=== PATIENT | female | born 1945 | race Caucasian/White ===

== ENCOUNTER 2017-11-12 13:02 | Emergency (ER) | payer MEDICARE, OTHER ==
[~2017-11-12] VITALS: Ht 165.1 cm; Wt 140.0 kg
[~2017-11-12 13:02] MED LIST: BL ADULT ASA81 MG PO; CALCIUM600 M1 OR; CELEBREX100 MG PO; CHILD'S ASA81 MG OR; COUMADIN5 MG PO; CRESTOR10 MG PO; CYMBALTA60 MG PO; DOXYCYCL HYC100 MG PO; ESCITALOPRAM OX10 MG PO; FISH OI1 OR; FLUOXETINE20 MG PO; FUROSEMIDE40 MG PO; GLUCOSAMINE1 TA1 OR; LORTAB 5-325 MG1 TAB PO; MAG-OX 400400 MG PO; METO50TA52 PO; MULIT-VITAMI OR; MULTIVITAM10 OR; MULTIVITAMI1 PO; POT CHLORIDE20 ME3 PO; VITAMIN C1000 MG OR; VITAMIN E400 UNIT OR
[2017-11-12 14:25] LABS: HEMATOCRIT 43.2 % (37.0-47.0); HEMOGLOBIN 14.4 g/dl (12.0-16.0); IMMATURE GRANULOCYTES 0.3 % (0.0-5.0); MEAN CELL VOLUME 96.6 fL CALC (80.0-100.0); MEAN CORPUSCULAR HGB 32.2 pG CALC (26.0-32.0); MEAN CORPUSCULAR HGB CONC 33.3 g/L CALC (32.0-36.0); NEUT# 8.61 thou/uL (2.00-7.15); RED BLOOD COUNT 4.47 mill/uL (4.20-5.60); RED CELL DISTRI WIDTH 13.3 % (11.5-15.5)
[2017-11-12 14:28] LABS: INTERNATIONAL NORMALIZED RATIO 2.3 RATIO (0.7-1.3); PROTHROMBIN TIME 25.6 SECONDS (9.0-12.5)
[2017-11-12 14:31] LABS: ALBUMIN 3.9 g/dL (3.2-5.0); ALKALINE PHOSPHATASE 71 u/l (38-126); BILIRUBIN, TOTAL 0.7 mg/dL (0.0-1.4); BUN 12 mg/dL (8-23); BUN/CREATININE RATIO 18 (12-20 (CALC)); CARBON DIOXIDE 24 mmol/l (22-30); CHLORIDE 102 mmol/l (95-108); CREATININE 0.7 mg/dL (0.5-1.0); GFR > 60 ML/MIN (>=60 (CALC)); GFR FOR AFR.AMER. > 60 ML/MIN (>=60 (CALC)); LIPASE 107 u/l (23-300); SGOT/AST 23 u/l (9-36); SGPT/ALT 36 u/l (11-66); SODIUM 139 mmol/l (137-146); TOTAL PROTEIN 6.9 g/dL (6.3-8.2)
[2017-11-12 14:32] LABS: ANION GAP 17 (6-22 (CALC)); POTASSIUM 3.7 mmol/l (3.5-5.1)
[2017-11-12 15:04] LABS: URINE BILIRUBIN - DIPSTICK NEGATIVE (NEGATIVE); URINE BLOOD DIPSTICK SMALL (NEGATIVE); URINE COLOR YELLOW; URINE GLUCOSE - DIPSTICK NEGATIVE (NEGATIVE); URINE KETONE TRACE mg/dL (NEGATIVE); URINE NITRITE - DIPSTICK NEGATIVE (Negative); URINE PROTEIN - DIPSTICK NEGATIVE (NEG-TRACE); URINE SPECIFIC GRAVITY <=1.005; URINE UROBILINOGEN - DIPSTICK 0.2 E.U./dL (0.2)
[2017-11-12 15:05] LABS: URINE CLARITY CLEAR; URINE LEUK ESTERASE MODERATE (NEGATIVE)
[2017-11-12] MEDS ORDERED: CELEXA20 MG PO (15:09)
[2017-11-12] MEDS ORDERED: FISH OIL1000 MG PO (15:10)
[2017-11-12] MEDS ORDERED: VITAMIN D PO ×2 (15:10→15:11)
[2017-11-12 15:13] LABS: URINE RBC 0-2 RBC/hpf (0-5); URINE SQUAMOUS EPITHELIAL CELL FEW EPI/hpf (0-FEW)
[2017-11-12] MEDS ORDERED: PERCOCET 10/31 COMBO PO (17:46)
[2017-11-12] MEDS ORDERED: ZOFRAN ODT4 MG PO (17:46)
[2017-11-12] MEDS ORDERED: MACROBID100 MG PO (17:46)
[2017-11-12 19:58] VITALS: BP 112/56
== END 2017-11-12 20:10 | disposition home or self-care (01) ==
LOC: ED 13:02
PROVIDERS: Emergency Medicine
DX: N20.0 Calculus of kidney (principal); N39.0 Urinary tract infection, site not specified; I10 Essential (primary) hypertension; Z86.711 Personal history of pulmonary embolism; R51 Headache
CPT/HCPCS: Q9967

== ENCOUNTER 2017-11-16 12:24 | Observation (INO) | payer MEDICARE, OTHER ==
[~2017-11-16] VITALS: Ht 165.1 cm; Wt 152.2 kg
[~2017-11-16 12:24] MED LIST changes: +CELEXA20 MG PO; +FISH OIL1000 MG PO; +MACROBID100 MG PO; +PERCOCET 10/31 COMBO PO; +VITAMIN D PO; +ZOFRAN ODT4 MG PO
--- NOTE | 2017-11-16 12:40 | NUR ---
PT AMBULATED TO ROOM WITH A STEADY GAIT.
--- NOTE | 2017-11-16 13:27 | NUR ---
PT SENT TO ER BY DR WORLEY TO BE ADMITTED FOR KIDNEY STONE REMOVAL. PT IS AOX4. PT STATES PAIN IN LOWER LEFT ABDOMEN AND LEFT FLANK. PT DENIES ANY C/P, SOB, OR WEAKNESS. PT HAS BEEN NAUSEATED.
--- NOTE | 2017-11-16 13:28 | NUR ---
ANAESTHIA AT BEDSIDE WITH PT
[2017-11-16 13:43] LABS: HEMATOCRIT 43.4 % (37.0-47.0); HEMOGLOBIN 14.2 g/dl (12.0-16.0); IMMATURE GRANULOCYTES 0.2 % (0.0-5.0); MEAN CELL VOLUME 97.1 fL CALC (80.0-100.0); MEAN CORPUSCULAR HGB 31.8 pG CALC (26.0-32.0); MEAN CORPUSCULAR HGB CONC 32.7 g/L CALC (32.0-36.0); NEUT# 5.49 thou/uL (2.00-7.15); RED BLOOD COUNT 4.47 mill/uL (4.20-5.60)
[2017-11-16] MEDS ORDERED: CIPROFLOXACN500 MG PO (13:53)
[2017-11-16 13:56] LABS: ALBUMIN 4.1 g/dL (3.2-5.0); ALKALINE PHOSPHATASE 70 u/l (38-126); ANION GAP 15 (6-22 (CALC)); BILIRUBIN, TOTAL 0.6 mg/dL (0.0-1.4); BUN 16 mg/dL (8-23); BUN/CREATININE RATIO 22 (12-20 (CALC)); CARBON DIOXIDE 27 mmol/l (22-30); CHLORIDE 103 mmol/l (95-108); CREATININE 0.7 mg/dL (0.5-1.0); GFR > 60 ML/MIN (>=60 (CALC)); GFR FOR AFR.AMER. > 60 ML/MIN (>=60 (CALC)); LIPASE 165 u/l (23-300); POTASSIUM 4.1 mmol/l (3.5-5.1); SGOT/AST 28 u/l (9-36); SGPT/ALT 38 u/l (11-66); SODIUM 141 mmol/l (137-146); TOTAL PROTEIN 7.2 g/dL (6.3-8.2)
--- NOTE | 2017-11-16 14:28 | NUR ---
PT RESTING ON STRETCHER, AWAITING ADMISSION
--- NOTE | 2017-11-16 14:59 | NUR ---
REPORT ATTEMPTED TO FLOOR, WILL RETURN CALL
--- NOTE | 2017-11-16 15:08 | NUR ---
REPORT GIVEN TO AREKUSUMI- ACCEPTED PT
--- NOTE | 2017-11-16 15:21 | NUR ---
Admission Note Report Given to: ARAKUSUMI Transported by: Wheelchair X Stretcher Transported with: X Nurse Transporter X Patent IV O2 X Nuclear Medicine Tech TRANSPORTED TO [facility]
[2017-11-16 15:29] VITALS: BP 132/73
--- NOTE | 2017-11-16 15:37 | NUR ---
ASSESSMENT DONE. PT IS A&O X3. LUNG SOUND CLEAR/DIMINISHED. PT STATED PAIN LEFT FLANK 2/ DENIES NEEDS OF PAIN MEDICATION. # 20 LFA THAT APPEARS HEALTHY. POC DISCUSSED. PT DENIES NEEDS AT THIS TIME. CALL LIGHT IN REACH.
[2017-11-16 17:00] LABS: ACT PARTIAL THROMBO TIME 42.9 SECONDS (20.0-32.5); INTERNATIONAL NORMALIZED RATIO 2.4 RATIO (0.7-1.3); PROTHROMBIN TIME 27.3 SECONDS (9.0-12.5)
[2017-11-16 18:01] LABS: URINE BILIRUBIN - DIPSTICK NEGATIVE (NEGATIVE); URINE BLOOD DIPSTICK TRACE-LYSED (NEGATIVE); URINE CLARITY CLEAR; URINE COLOR YELLOW; URINE GLUCOSE - DIPSTICK NEGATIVE (NEGATIVE); URINE KETONE NEGATIVE (NEGATIVE); URINE LEUK ESTERASE TRACE (NEGATIVE); URINE NITRITE - DIPSTICK NEGATIVE (Negative); URINE PROTEIN - DIPSTICK NEGATIVE (NEG-TRACE); URINE SPECIFIC GRAVITY <=1.005; URINE UROBILINOGEN - DIPSTICK 0.2 E.U./dL (0.2)
--- NOTE | 2017-11-16 19:15 | NUR ---
CALLED DR. CAMACHO RE: PT EKG AND LABS PT 27.3, INR 2.4, AND PTT 42.9. THAT PATIENT TOOK HER WARFARIN TODAY. DR. CAMACHO STATED THAT PATIENT IS MEDICALLY CLEAR FOR SURGERY.
--- NOTE | 2017-11-16 19:41 | NUR ---
PATIENT RESTING IN BED AT THIS TIME-AWAKE ALERT AND ORIENTEDX3. PATIENT WITH NO COMPLAINTS AT THIS TIME. STATES THAT SHE DOES HAVE LEFT FLANK PAIN THAT COMES AND GOES BUT NOT BAD AT THIS TIME. 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 PATIENT WITH IV SITE TO LEFT FOREARM WITH IVF 1/2NS PATENT AND INFUSING AT 100CC/HR. PATIENT INSTRUCTED THAT SHE WILL NPO AFTER MIDNIGHT TONIGHT FOR OR PROCEDURE IN AM. VERBALIZES UNDERSTANDING OF THE STATED. SAFETY PRECAUTIONS REINFORCED. CALL LIGHT IN REACH. WILL CONT TO MONITOR.
[2017-11-16 20:25] VITALS: BP 115/64
--- NOTE | 2017-11-16 22:00 | NUR ---
PATIENT RESTING IN BED. STATES NO RELIEF FROM TYLENOL THAT WAS GIVEN FOR H/A EARLIER. OFFERED MORPHINE BUT PATIENT DECLINED. IV SITE TO LEFT FOREARM REMAINS HEALTHY WITH IVF 1/2NS INFUSING AT 100CC/HR. MERRUM 1GM HUNG ORDERED. HS SNACK PROVIDED TO PATIENT. SAFETY PRECAUTIONS REINFORCED. CALL LIGHT IN REACH. WILL CONT TO MONITOR.
--- NOTE | 2017-11-16 23:30 | NUR ---
RESTING IN BED AT THIS TIME-APPEARS SLEEPING. CALL LIGHT IN REACH. WILL CONT TO MONITOR.
[2017-11-17] VITALS (9 sets, daily range): BP systolic 119–134; BP diastolic 49–90
--- NOTE | 2017-11-17 03:55 | NUR ---
PATIENT APPEARS SLEEPING AT THIS TIME. NPO FOR PROCEDURE THIS MORNING. IVF 1/2NS PATENT AND INFUSING AT 100CC/HR. CALL LIGHT IN REACH. WILL CONT TO MONITOR.
[2017-11-17 05:19] LABS: INTERNATIONAL NORMALIZED RATIO 2.6 RATIO (0.7-1.3); PROTHROMBIN TIME 30.1 SECONDS (9.0-12.5)
--- NOTE | 2017-11-17 05:30 | NUR ---
PATIENT RESTING IN BED-AWAKE ALERT ANDORIENTENTEDX3. REMAINS NPO FOR PROCEDURE THIS MORNING. MERRUM HUNG ORDERED. EARRINGS REMOVED AND PLACE IN SECURE CUP. CALL LIGHT IN REACH. [facility]
--- NOTE | 2017-11-17 06:25 | NUR ---
PATIENT UP TO VOID. UNDERGARMENTS REMOVED. REMAINS NPO. PATIENT TO OR VIA STRETCHER WITH OR STAFF AND CHART.
--- NOTE | 2017-11-17 07:15 | NUR ---
REPORT RECEIVED BY JESUS. PT IS IN OR AT THIS TIME.
[2017-11-17] MEDS ORDERED: AZO TABS95 MG PO (09:02)
[2017-11-17] MEDS ORDERED: CIPRO XR500 MG PO (09:02)
[2017-11-17] MEDS ORDERED: OXYBUTYNIN5 M1 PO (09:02)
[2017-11-17] MEDS ORDERED: GABAPENTIN300 M2 PO (09:02)
--- NOTE | 2017-11-17 09:13 | NUR ---
PT CAME FROM OR VIA STRETCHER BY YULIYA ORONA. PT TRANFER TO BED WELL. ASSESSMENT DONE. LUNG SOUND CLEAR/DIMINISHED. #20LFA THAT APPEARS HEALTHY. LR 100ML/HR INFUSING WELL. PT DENIES PAIN AT THIS TIME. PT STATED THAT HER THROAT IS SORE ICE CHIPS PROVIDED. ASSISTED PT TO THE BSC. PT TOLERATED WELL. SAFETY PRECAUTIONS REINFORCED AND CALL LIGHT IN REACH. PT MOM IN ROOM.
--- NOTE | 2017-11-17 15:39 | NUR ---
MEDICATED PT WITH PERCOCET FOR PAIN SEE EMAR. PT DENIES ANY OTHER NEEDS AT THIS TIME. O2 2L/MIN VIA NC. CALL LIGHT IN REACH.
--- NOTE | 2017-11-17 19:30 | NUR ---
PATIENT RESTING IN BED AT THIS TIME-FINISHING DINNER-TOLERATED WELL. ALERT AND ORIENTEDX3. PATIENT WITH IV SITE TO RIGHT FOREARM WITH IVF 1/2NS PATENT AND INFUSING AT 100CC/HR. SITE APPEARS HEALTHY AT THIS TIME. NO COMPLAINTS AT THIS TIME. SAFETY PRECAUTIONS REINFORCED. CALL LIGHT IN REACH. WILL CONT TO MONITOR.
--- NOTE | 2017-11-17 22:58 | NUR ---
PATIENT RESTING IN BED-C/O ABD/PELVIC PAIN. MEDICATED WITH PERCOCET 10/325MG PO ORDERED. MERRUM HUNG ORDERED. PROVIDED WITH HS SNACK PER PATIENT REQUEST. CALL LIGHT IN REACH. WILL CONT TO MONITOR.
--- NOTE | 2017-11-18 00:38 | NUR ---
PATIENT RESTING IN BED-C/O LEFT FLANK PAIN, NAUSEA AND BURNING UPON URINATION-JUST UP TO BR TO VOID 200CC OF PINK TINGED URINE. PATIENT MEDICATED FOR NAUSEA WITH ZOFRAN 4MG IVP. MEDICATED FOR BURNING UPON URINATION WITH PYRIDIUM 200MG PO. MEDICATED FOR 9/10 PAIN SCALE WITH MORPHINE 2MG IVP. COLD COMPRESS PROVIDED FOR HEAD. IVF PATENT AND INFUSING AT 100CC/HR. SAFETY PRECAUTIONS REINFORCED.CALL LIGHT IN REACH. WILL CONT TO MONITOR.
[2017-11-18 00:42] VITALS: BP 125/64
--- NOTE | 2017-11-18 01:33 | NUR ---
PATIENT STILL C/O LEFT FLANK PAIN. MEDICATED WITH PERCOCET 10/325MG PO FOR 7/10 ON PAIN SCALE. PATIENT ASSISTED UP TO THE BR. WILL CONT TO MONITOR.
--- NOTE | 2017-11-18 03:00 | NUR ---
PATIENT RESTING IN BED-STATES THAT HER PAIN IS BETTER-2/10 ON PAIN SCALE. CALL LIGHT IN REACH. WILL CONT TO MONITOR.
[2017-11-18 05:21] VITALS: BP 113/58
--- NOTE | 2017-11-18 05:36 | NUR ---
PATIENT RESTING IN BED C/O LEFT SIDE AND FLANK PAIN, SPASMS. MEDICATED WITH PERCOCET 10/325MG PO AND BENTYL 10MG IM FOR SPASMS. IVF REMAINS AT 100CC/HR VIA RIGHT FOREARM SITE. MERRUM HUNG ORDERED. PATIENT LST VOID 225CC OF PINKISH ORANGE URINE. CALL LIGHT IN REACH. WILL CONT TO MONITOR.
[2017-11-18 08:00] VITALS: BP 135/44
--- NOTE | 2017-11-18 09:00 | NUR ---
PT SEEN AWAKE, ALERT, ORIENTED. PT IS ABLE TO GET TO HER FEET WITH MINIMAL ASSIST, WALKS TO BR. PT MEDICATED FOR HEADACHE PAIN. NO COMPLAINTS R/T URINARY PAIN.
--- NOTE | 2017-11-18 11:48 | NUR ---
Vancomycin consult Age: 72 years Weight: 152.2 kg Height: 165.1 cm Gender: Female SCR: 0.7 mg/dl Dosing weight: 95.08 kg IBW: 57.00 kg CRCL (ml/min): 67.3 Von (hr-1): 0.060 Half-life (hrs): 11.55 Vd (liters): 106.54 (factor: 0.7 L/kg) Vancomycin 1500 mg Q12H to produce a predicted peak of 26 mcg/ml and a predicted trough of 14 mcg/ml based on (Population-based pharmacokinetic analysis).
--- NOTE | 2017-11-18 13:00 | NUR ---
PT HOPED TO GO HOME TODAY, AWARE NOW THAT IT WILL NOT HAPPEN TODAY. PT RECEIVED VANCOMYCIN IV. HEADACHE IMPROVED.
[2017-11-18 16:28] VITALS: BP 114/69
--- NOTE | 2017-11-18 17:29 | NUR ---
PT REMAINS BEFORE, RESTING IN THE BED IN NO ACUTE DISTRESS. NO COMPLAINTS OF FLANK PAIN. PT ASKS FOR HELP APPROPRIATELY.
[2017-11-18 19:23] VITALS: BP 115/61
--- NOTE | 2017-11-18 19:36 | NUR ---
REPORT GIVEN BY ALDEN DWYER. PATIENT RESTING IN BED. HAS C/O OF A HEADACHE, AN ICEPACK WAS GIVEN. FALL PRECAUTIONS IN PLACE, PLAN OF CARE DISCUSSED, AND PATIENT INFORMED TO CALL WITH ANY QUESTIONS OR CONCERNS. RESP EVEN AND UNLABORED. NO S/S OF DISTRESS NOTED.
--- NOTE | 2017-11-18 23:48 | NUR ---
PATIENT RESTING WITH EYES CLOSED. RESP EVEN AND UNLABORED. NO S/S OF DISTRESS NOTED.
[2017-11-19] VITALS: BP 109/58
[2017-11-19 04:00] VITALS: BP 136/56
--- NOTE | 2017-11-19 04:06 | NUR ---
PATIENT AWAKE AND USING THE RESTROOM. RESP EVEN AND UNLABORED. NO S/S OF DISTRESS NOTED.
[2017-11-19 05:08] LABS: HEMOGLOBIN 13.3 g/dl (12.0-16.0); MEAN CELL VOLUME 100.2 fL CALC (80.0-100.0); MEAN CORPUSCULAR HGB 31.7 pG CALC (26.0-32.0); MEAN CORPUSCULAR HGB CONC 31.7 g/L CALC (32.0-36.0); RED BLOOD COUNT 4.19 mill/uL (4.20-5.60); RED CELL DISTRI WIDTH 13.6 % (11.5-15.5)
[2017-11-19 05:40] LABS: ANION GAP 12 (6-22 (CALC)); BUN 10 mg/dL (8-23); BUN/CREATININE RATIO 15 (12-20 (CALC)); CARBON DIOXIDE 27 mmol/l (22-30); CHLORIDE 107 mmol/l (95-108); CREATININE 0.7 mg/dL (0.5-1.0); GFR > 60 ML/MIN (>=60 (CALC)); GFR FOR AFR.AMER. > 60 ML/MIN (>=60 (CALC)); SODIUM 142 mmol/l (137-146)
--- NOTE | 2017-11-19 07:23 | NUR ---
REPORT RECEIVED FROM YULIYA MARTINEZ. PT SUPINE IN BED. REPORTS HEADACHE. PAIN MEDICAITONS AND SCHEDULES REVIEWED. PERCOCET PO ADMINISTERED. REPORTING OF CONCERNS ENCOURAGED. CALL LIGHT REVIEWED AND IN REACH. PT STATES UNDERSTANDING.
[2017-11-19 09:00] VITALS: BP 112/50
[2017-11-19 11:06] LABS: URINE BILIRUBIN - DIPSTICK NEGATIVE (NEGATIVE); URINE BLOOD DIPSTICK LARGE (NEGATIVE); URINE GLUCOSE - DIPSTICK 100 mg/dL (NEGATIVE); URINE KETONE NEGATIVE (NEGATIVE); URINE LEUK ESTERASE TRACE (Negative); URINE NITRITE - DIPSTICK POSITIVE (Negative); URINE PH 5.5 (4.5-8.0); URINE PROTEIN - DIPSTICK 30 mg/dL (NEG-TRACE); URINE SPECIFIC GRAVITY 1.025
--- NOTE | 2017-11-19 11:07 | NUR ---
PT LEFT FLOOR VIA WHEELCHAIR, IN ROUTE TO US, ACCOMPANIED BY DARRELL BEVERLY.
[2017-11-19 11:08] LABS: URINE COLOR ORANGE
[2017-11-19 11:09] LABS: URINE BACTERIA MODERATE hpf; URINE CLARITY CLOUDY; URINE EPITHELIAL CELLS FEW EPI/hpf (0-FEW); URINE RBC 50-100 RBC/hpf (0-5)
--- NOTE | 2017-11-19 11:45 | NUR ---
PT RETURNED TO FLOOR. IV RESUMED. PT REPORTS HEADACHE. IMITREX PO ADMINISTERED.
[2017-11-19 15:55] VITALS: BP 133/69
--- NOTE | 2017-11-19 16:10 | NUR ---
PT SUPINE IN BED. SLEEPING. CALL LIGHT WITHIN REACH.
[2017-11-19 19:28] VITALS: BP 116/64
--- NOTE | 2017-11-19 19:30 | NUR ---
BEDSIDE REPORT RECEIVED FROM YULIYA PAREKH. PT RESTING IN BED SEMI FOWLERS WITH ICE PACK TO NECK AND COOL CLOTH OVER EYES; ALERT AND ORIENTED. STATES THAT HER HEADACHE IS A 6/10 AND REQUESTS PAIN MEDICATIONS. RESPIRATIONS EVEN AND UNLABORED ON ROOM AIR. PLAN OF CARE REVIEWED. PT ENCOURAGED TO VERBALIZE CONCERNS. STATES UNDERSTANDING. SAFETY MEASURES IN PLACE. CALL LIGHT WITHIN REACH.
--- NOTE | 2017-11-20 00:24 | NUR ---
PEROCET GIVEN FOR C/O HEADACHE. PT UP AGAIN TO VOID; SOME INCONTINENCE AND URINE IS YELLOW AND BLOOD TINGED. STAND BY ASSIST. IV FLUIDS INFUSING WITHOUT DIFFICULTY; IV SITE APPEARS HEALTHY AND DRESSING CHANGES. SAFETY MEASURES IN PLACE. CALL LIGHT WITHIN REACH.
[2017-11-20 00:44] VITALS: BP 108/56
--- NOTE | 2017-11-20 00:50 | NUR ---
OXYGEN SATURATION DECREASED TO 80% ON ROOM AIR WHILE ASLEEP; APPLIED OXYGEN VIA NC AT 2L AND HOB ELEVATED; SATURATION CURRENLTY 93% ON OXYGEN.
--- NOTE | 2017-11-20 04:21 | NUR ---
PT CONTINUES TO HAVE HEADACHE; PERCOCET AND MORPHINE ARE EFFECTIVE, BUT DO NOT COMPLETELY ALLEVIATE PAIN; ALSO HAS MILD LLQ PAIN. RESPIRATIONS REMAIN EVEN AND UNLABORED ON OXYGEN WITH BETTER OXYGEN SATURATIONS. CONTINUES TO HAVE BLADDER INCONTINENCE WITH BLOOD TINGED URINE. CALL LIGHT WITHIN REACH.
[2017-11-20 04:30] VITALS: BP 102/60
[2017-11-20 04:50] LABS: HEMATOCRIT 39.9 % (37.0-47.0); HEMOGLOBIN 12.8 g/dl (12.0-16.0); MEAN CELL VOLUME 100.5 fL CALC (80.0-100.0); MEAN CORPUSCULAR HGB 32.2 pG CALC (26.0-32.0); MEAN CORPUSCULAR HGB CONC 32.1 g/L CALC (32.0-36.0); RED BLOOD COUNT 3.97 mill/uL (4.20-5.60); RED CELL DISTRI WIDTH 13.8 % (11.5-15.5)
[2017-11-20 05:03] LABS: INTERNATIONAL NORMALIZED RATIO 2.4 RATIO (0.7-1.3); PROTHROMBIN TIME 27.5 SECONDS (9.0-12.5)
--- NOTE | 2017-11-20 05:09 | NUR ---
PERCOCET GIVEN FOR HEADACHE. PT TOOK MEDICATION IN APPLESAUCE WITH TREMOR NOTED TO HANDS. PT STATES THAT SHE SHAKES WHEN SHE IS HAVING PAIN.
--- NOTE | 2017-11-20 07:00 | NUR ---
SHIFT CHANGE REPORT FROM KIKA CHAVEZ AWAKE RESTING IN BED, C/O OF HEADACHE @ 2/10 AT THIS TIME STATING MEDICATION GIVEN EARLIER RELIEVED PAIN, IVF INFUSING, O2 @ 2L VIA NC IN PLACE, ASSISTED TO BR AND UP TO CHAIR FOR MEAL, CALL YEE IN REACH.
[2017-11-20 07:17] LABS: ANION GAP 12 (6-22 (CALC)); BUN 13 mg/dL (8-23); BUN/CREATININE RATIO 19 (12-20 (CALC)); CARBON DIOXIDE 26 mmol/l (22-30); CHLORIDE 107 mmol/l (95-108); CREATININE 0.7 mg/dL (0.5-1.0); GFR > 60 ML/MIN (>=60 (CALC)); GFR FOR AFR.AMER. > 60 ML/MIN (>=60 (CALC)); POTASSIUM 4.6 mmol/l (3.5-5.1); SODIUM 139 mmol/l (137-146)
[2017-11-20 07:49] VITALS: BP 103/47
--- NOTE | 2017-11-20 08:43 | NUR ---
Vancomycin single level analysis: Current dose being given: 1500 mg Current dosing interval: 12 hrs Current infusion time (hrs): 2 Single level Trough Data: Trough level obtained: 20 mcg/ml Timing of trough - Number of hours before next dose: 0.08 Hrs Desired peak: 30 mcg/ml Desired trough: 15 mcg/ml WE WILL HOLD 11/20/17 AM DOSE AND RESTART VANCOMYCIN 1250MG Q12H @2100 Next trough will be 11/22/17@ 0830
--- NOTE | 2017-11-20 11:47 | NUR ---
SLEEPING IN BED AT THIS TIME, NO SIGN DISCOMFORT, CALL YEE IN REACH.
--- NOTE | 2017-11-20 14:02 | NUR ---
PT WAS PERFORMING MATTHEW-CARE @ 1130 AM TODAY, STENT FELL OUT OF PLACE ON FLOOR. DR COOPER'S PLANTING SUPERVISOR (KAR) NOTIFIED AND ADVISED SHE WILL CONTACT HIM HE IS IN [facility] AT THIS TIME AND WILL GET BACK TO ME MICHAEL, PHONE NUMBER SUPPLIED.
--- NOTE | 2017-11-20 14:07 | NUR ---
KAR FROM DR COOPER'S OFFICE RETURNED CALLED STATING SHE CONTACTED DR COOPER WHO INFORMED HER EVERYTHING SHOULD BE FINE HE ALREADY REMOVED STONE, WILL CONTINUE TO MONITOR.
[2017-11-20 16:00] VITALS: BP 118/61
--- NOTE | 2017-11-20 16:03 | NUR ---
PAT FROM PHYSICAL THERAPY CAME AND EVAL & TREATED PT, SHE IS NOW RESTING IN BED IN SUPINE POSITION, USING INCENTIVE SPIROMETER INDEPENDENTLY INSTRUCTED, PAIN CONTROLLED, WILL CONTINUE TO MONITOR.
--- NOTE | 2017-11-20 19:15 | NUR ---
PT RESTING IN BED WATCHING TV. PT ALERT AND ORIENTED. RESP EVEN AND UNLABORED. LUNGS CLEAR/DIMINISHED BILAT. ABD SOFT, HYPOACTIVE BOWEL SOUNDS. PEDAL PULSES PALPATED BILAT. PT DENIES ANY PAIN AT THIS TIME. IV ATTEMPT UNSUCCESSFUL BY THIS PEANUT SORTER. PT REPOSITIONED FOR COMFORT. PT ENCOURAGED TO CALL FOR ASSISTANCE TO AMBULATE. FREQUENT ROUNDS MADE. CALL LIGHT WITHIN REACH.
[2017-11-20 20:00] VITALS: BP 152/78
--- NOTE | 2017-11-20 20:55 | NUR ---
IV ATTEMPT SUCCESSFUL BY YULIYA MAC. IV SITE #24 RW, SITE PATENT; FLUSHED WITHOUT DIFFICULTY.
--- NOTE | 2017-11-21 00:25 | NUR ---
PT CALLED FOR ASSISTANCE TO USE THE BATHROOM. PT ASSISTED TO BATHROOM, VOIDED 500CC OF DARK SANDY URINE. PT ASSISTED BACK TO BED. PT REPOSITIONED FOR COMFORT. PT DENIES ANY PAIN. IV RW PATENT; NO REDNESS OR EDEMA NOTED. CALL LIGHT WITHIN REACH.
--- NOTE | 2017-11-21 04:30 | NUR ---
PT WOKE FOR MORNING VITALS. PT DENIES PAIN. ASSESSMENT UNCHANGED. RESP EVEN AND UNLABORED. NO DISTRESS NOTED. PT REPOSITIONED FOR COMFORT. CALL LIGHT WITHIN REACH.
[2017-11-21 05:45] VITALS: BP 102/68
[2017-11-21 06:38] LABS: INTERNATIONAL NORMALIZED RATIO 1.8 RATIO (0.7-1.3); PROTHROMBIN TIME 19.9 SECONDS (9.0-12.5)
--- NOTE | 2017-11-21 07:15 | NUR ---
REPORT RECEIVED BY JESSICA. PT IS RESTING IN BED WITH NO S/S OF DISTRESS NOTED. PT DENIES NEEDS AT THIS TIME. CALL LIGHT IN REACH.
[2017-11-21 07:54] VITALS: BP 105/62
--- NOTE | 2017-11-21 08:00 | NUR ---
ASSESSMENT DONE. LUNG SOUND CLEAR/DIMINISHED. 02 AT 2L/MIN VIA NC. PT DENIES PAIN. PT STATED THAT SHE IS JUST TIRED. 1/2NS 100ML/HR INFUSING WELL. ASSISTED PT TO THE BATHROOM PT VOID YELLOW URINE AND THEN TO THE RECLINER. SETUP PT FOR BREAKFAST. PT DENIES ANY OTHER NEEDS AT THIS TIME. SAFETY PRECAUTIONS REINFORCED AND CALL LIGHT IN REACH.
--- NOTE | 2017-11-21 09:22 | NUR ---
PT WENT DOWN VIA WHEELCHAIR TO X-RAY FOR HER PICC PLACEMENT .
[2017-11-21] MEDS ORDERED: DITROPAN5 MG/TA1 PO (10:57)
[2017-11-21] MEDS ORDERED: LYPHOCIN1 GM IV (10:57)
[2017-11-21] MEDS ORDERED: PERCOCET 10/31 COMBO PO (10:57)
[2017-11-21] MEDS ORDERED: CIPROFLOXACN500 MG PO (10:57)
[2017-11-21] MEDS ORDERED: DICYCLOMINE20 MG PO (10:57)
--- NOTE | 2017-11-21 12:00 | NUR ---
PT IS SITTING IN RECLINER. EATING HER LUNCH WITH NO S/S OF DISTRESS NOTED. PT DENIES NEEDS AT THIS TIME. CALL LIGHT IN REACH.
--- NOTE | 2017-11-21 12:10 | NUR ---
Patient has requested a walker for home use stating she feels woozy at times from the medication, and feels weak from the infection. She was evaluated with a rolling walker and is more stable with the walker. She was instructed in safe use of the walker especially in reqards to transfers. With out the walker she requires hands on grarding of one, and with the walker she requires only SBA. She is safe with the walker and the therapist is recommending a bariatric, rolling walker with a seat on it so she can sit if she becomes fatigued or becomes dizzy. The therapist notified the patient's nurse and convention planner.
[2017-11-21 12:43] VITALS: BP 108/69
--- NOTE | 2017-11-21 15:00 | NUR ---
Discharge instructions given. Patient verbalizes understanding of same. PT STATED THAT SHE IS WAITING FOR HER DAUGHTER IN LAW TO COME. PT DENIES ANY OTHER NEEDS AT THIS TIME. CALL LIGHT IN REACH.
--- NOTE | 2017-11-21 16:25 | NUR ---
Discharged in stable condition via Wheelchair to Home with staff. All belongings sent with pt.
[2017-11-22] MEDS ORDERED: PROBIOTIC ACIDO1 CA1 PO (13:14)
[2017-11-22] MEDS ORDERED: ZOFRAN4 MG/TAB PO (13:14)
[2017-11-22] MEDS ORDERED: OXYCODONE HCL5 MG PO (13:15)
[2017-11-22] MEDS ORDERED: SERTRALINE50 MG PO (13:16)
[2017-11-22] MEDS ORDERED: DICYCLOMINE10 MG PO (13:16)
[2017-11-22] MEDS ORDERED: OXYBUTYNIN5 M1 PO (13:16)
[2017-11-22] MEDS ORDERED: CIPROFLOXACN500 MG PO (13:17)
[2017-11-22] MEDS ORDERED: LORATADINE10 M1 PO ×2 (13:17→13:22)
[2017-11-22] MEDS ORDERED: METO50TA52 PO (13:22)
[2017-11-22] MEDS ORDERED: NYSTATIN100000 UN1 PO (13:23)
[2017-11-22] MEDS ORDERED: JANTOVEN5 MG PO (13:24)
[2017-11-22] MEDS ORDERED: FISH OIL1000 MG PO (13:24)
[2017-11-22] MEDS ORDERED: PERCOCET 10/31 COMBO PO (13:24)
[2017-11-22] MEDS ORDERED: GABAPENTIN100 MG PO (13:25)
[2017-11-22] MEDS ORDERED: WARFARIN2.5 MG PO (13:27)
== END 2017-11-21 16:25 | disposition home health service (06) ==
LOC: ED 12:24 → ED-I 13:16 → ED 13:33 → MS2 13:34
PROVIDERS: Family Medicine; Internal Medicine; ADMIT General Practice; ATTEND General Practice
PROC: 0TC78ZZ Extirpation of Matter from Left Ureter, Via Natural or Artificial Opening Endoscopic (ICD-10-PCS; principal; 2017-11-17)
PROC: 0T778DZ Dilation of Left Ureter with Intraluminal Device, Via Natural or Artificial Opening Endoscopic (ICD-10-PCS; 2017-11-17)
PROC: 02HV33Z Insertion of Infusion Device into Superior Vena Cava, Percutaneous Approach (ICD-10-PCS; 2017-11-21)
PROC: B518ZZA Fluoroscopy of Superior Vena Cava, Guidance (ICD-10-PCS; 2017-11-21)
DX: N13.6 Pyonephrosis (principal); T83.89XA Other specified complication of genitourinary prosthetic devices, implants and grafts, initial encounter; I10 Essential (primary) hypertension; F41.1 Generalized anxiety disorder; M19.90 Unspecified osteoarthritis, unspecified site; E66.01 Morbid (severe) obesity due to excess calories; Z68.43 Body mass index [BMI] 50.0-59.9, adult; I25.10 Atherosclerotic heart disease of native coronary artery without angina pectoris; G43.909 Migraine, unspecified, not intractable, without status migrainosus; B95.2 Enterococcus as the cause of diseases classified elsewhere; B37.9 Candidiasis, unspecified; Y83.1 Surgical operation with implant of artificial internal device as the cause of abnormal reaction of the patient, or of later complication, without mention of misadventure at the time of the procedure; Z86.711 Personal history of pulmonary embolism; Z85.828 Personal history of other malignant neoplasm of skin; Z88.1 Allergy status to other antibiotic agents; Z79.01 Long term (current) use of anticoagulants
CPT/HCPCS: J1100; J2710; J3370; Q9967

== ENCOUNTER 2017-11-22 11:04 | Inpatient (IN) | payer MEDICARE, OTHER ==
[~2017-11-22] VITALS: Ht 165.1 cm; Wt 175.0 kg
[~2017-11-22 11:04] MED LIST changes: +AZO TABS95 MG PO; +CIPRO XR500 MG PO; +CIPROFLOXACN500 MG PO; +DICYCLOMINE20 MG PO; +DITROPAN5 MG/TA1 PO; +GABAPENTIN300 M2 PO; +LYPHOCIN1 GM IV; +OXYBUTYNIN5 M1 PO
[2017-11-22 12:27] LABS: HEMATOCRIT 37.2 % (37.0-47.0); IMMATURE GRANULOCYTES 0.3 % (0.0-5.0); MEAN CELL VOLUME 99.7 fL CALC (80.0-100.0); MEAN CORPUSCULAR HGB 32.2 pG CALC (26.0-32.0); MEAN CORPUSCULAR HGB CONC 32.3 g/L CALC (32.0-36.0); NEUT# 7.87 thou/uL (2.00-7.15); RED BLOOD COUNT 3.73 mill/uL (4.20-5.60); RED CELL DISTRI WIDTH 13.8 % (11.5-15.5)
[2017-11-22 12:38] LABS: ANION GAP 9 (6-22 (CALC)); BUN 16 mg/dL (8-23); BUN/CREATININE RATIO 12 (12-20 (CALC)); CARBON DIOXIDE 31 mmol/l (22-30); CHLORIDE 105 mmol/l (95-108); CREATININE 1.3 mg/dL (0.5-1.0); GFR 40 ML/MIN (>=60 (CALC)); GFR FOR AFR.AMER. 49 ML/MIN (>=60 (CALC)); POTASSIUM 4.1 mmol/l (3.5-5.1); SODIUM 140 mmol/l (137-146)
[2017-11-22] MEDS ORDERED: ZOFRAN4 MG/TAB PO (13:14)
[2017-11-22] MEDS ORDERED: PROBIOTIC ACIDO1 CA1 PO (13:14)
[2017-11-22] MEDS ORDERED: OXYCODONE HCL5 MG PO (13:15)
[2017-11-22] MEDS ORDERED: DICYCLOMINE10 MG PO (13:16)
[2017-11-22] MEDS ORDERED: OXYBUTYNIN5 M1 PO (13:16)
[2017-11-22] MEDS ORDERED: SERTRALINE50 MG PO (13:16)
[2017-11-22] MEDS ORDERED: LORATADINE10 M1 PO ×2 (13:17→13:22)
[2017-11-22] MEDS ORDERED: CIPROFLOXACN500 MG PO (13:17)
[2017-11-22] MEDS ORDERED: METO50TA52 PO (13:22)
[2017-11-22] MEDS ORDERED: NYSTATIN100000 UN1 PO (13:23)
[2017-11-22] MEDS ORDERED: FISH OIL1000 MG PO (13:24)
[2017-11-22] MEDS ORDERED: PERCOCET 10/31 COMBO PO (13:24)
[2017-11-22] MEDS ORDERED: JANTOVEN5 MG PO (13:24)
[2017-11-22] MEDS ORDERED: GABAPENTIN100 MG PO (13:25)
[2017-11-22] MEDS ORDERED: WARFARIN2.5 MG PO (13:27)
[2017-11-22 14:16] LABS: INFLUENZA A NONE DETECTED (NONE DETECT); INFLUENZA B NONE DETECTED (NONE DETECT)
[2017-11-22 20:00] VITALS: BP 107/59
[2017-11-23 00:45] VITALS: BP 145/58
[2017-11-23 05:05] VITALS: BP 119/60
[2017-11-23 08:57] VITALS: BP 130/70
[2017-11-23 11:15] VITALS: BP 108/63
[2017-11-23 13:52] LABS: INTERNATIONAL NORMALIZED RATIO 2.1 RATIO (0.7-1.3); PROTHROMBIN TIME 24.1 SECONDS (9.0-12.5)
[2017-11-23 15:51] VITALS: BP 119/66
[2017-11-23 19:23] VITALS: BP 127/65
[2017-11-24 00:46] VITALS: BP 99/58
[2017-11-24 04:22] VITALS: BP 110/61
[2017-11-24 06:20] LABS: INTERNATIONAL NORMALIZED RATIO 2.1 RATIO (0.7-1.3); PROTHROMBIN TIME 24.1 SECONDS (9.0-12.5)
[2017-11-24 08:30] VITALS: BP 121/61
[2017-11-24 10:09] LABS: CREATININE 1.1 mg/dL (0.5-1.0)
[2017-11-24 11:24] VITALS: BP 112/50
[2017-11-24 12:49] LABS: CREATININE 1.1 mg/dL (0.5-1.0); POTASSIUM 4.5 mmol/l (3.5-5.1)
[2017-11-24 12:52] LABS: HEMATOCRIT 37.3 % (37.0-47.0); HEMOGLOBIN 11.7 g/dl (12.0-16.0); IMMATURE GRANULOCYTES 0.2 % (0.0-5.0); MEAN CELL VOLUME 100.5 fL CALC (80.0-100.0); MEAN CORPUSCULAR HGB 31.5 pG CALC (26.0-32.0); MEAN CORPUSCULAR HGB CONC 31.4 g/L CALC (32.0-36.0); NEUT# 6.1 thou/uL (2.00-7.15); RED BLOOD COUNT 3.71 mill/uL (4.20-5.60); RED CELL DISTRI WIDTH 13.5 % (11.5-15.5)
[2017-11-24 15:31] VITALS: BP 134/57
[2017-11-24 19:18] VITALS: BP 119/61
[2017-11-25 00:28] VITALS: BP 127/60
[2017-11-25 04:13] VITALS: BP 116/69
[2017-11-25 05:19] LABS: INTERNATIONAL NORMALIZED RATIO 2.5 RATIO (0.7-1.3); PROTHROMBIN TIME 28.5 SECONDS (9.0-12.5)
[2017-11-25 08:27] VITALS: BP 146/74
[2017-11-25 11:00] VITALS: BP 111/60
[2017-11-25 11:50] LABS: CREATININE 1.1 mg/dL (0.5-1.0); POTASSIUM 4.4 mmol/l (3.5-5.1)
[2017-11-25 16:00] VITALS: BP 116/49
[2017-11-25 19:28] VITALS: BP 124/57
[2017-11-26] VITALS (10 sets, daily range): BP systolic 96–142; BP diastolic 41–81
[2017-11-26 05:47] LABS: HEMATOCRIT 34.8 % (37.0-47.0); HEMOGLOBIN 11.2 g/dl (12.0-16.0); MEAN CELL VOLUME 98.6 fL CALC (80.0-100.0); MEAN CORPUSCULAR HGB 31.7 pG CALC (26.0-32.0); MEAN CORPUSCULAR HGB CONC 32.2 g/L CALC (32.0-36.0); RED BLOOD COUNT 3.53 mill/uL (4.20-5.60); RED CELL DISTRI WIDTH 13.2 % (11.5-15.5)
[2017-11-26 06:06] LABS: INTERNATIONAL NORMALIZED RATIO 2.6 RATIO (0.7-1.3); PROTHROMBIN TIME 29.9 SECONDS (9.0-12.5)
[2017-11-26 06:19] LABS: CREATININE 1.1 mg/dL (0.5-1.0); POTASSIUM 4.2 mmol/l (3.5-5.1)
[2017-11-26] MEDS ORDERED: LYPHOCIN1 GM IV (13:25)
[2017-11-26] MEDS ORDERED: CIPRO XR500 MG PO (13:25)
== END 2017-11-26 21:10 | DRG 690 ==
LOC: ED 11:04 → ED-I 18:45 → ED 19:09 → MS2 19:10
PROVIDERS: Family Medicine; Internal Medicine; ADMIT General Practice; ATTEND General Practice
PROC: 0T778DZ Dilation of Left Ureter with Intraluminal Device, Via Natural or Artificial Opening Endoscopic (ICD-10-PCS; principal; 2017-11-26)
PROC: BT1FYZZ Fluoroscopy of Left Kidney, Ureter and Bladder using Other Contrast (ICD-10-PCS; 2017-11-26)
DX: N13.6 Pyonephrosis (principal); Z68.44 Body mass index [BMI] 60.0-69.9, adult; N17.9 Acute kidney failure, unspecified; I10 Essential (primary) hypertension; E66.01 Morbid (severe) obesity due to excess calories; I25.10 Atherosclerotic heart disease of native coronary artery without angina pectoris; M19.90 Unspecified osteoarthritis, unspecified site; B95.2 Enterococcus as the cause of diseases classified elsewhere; R09.02 Hypoxemia; R51 Headache; Z86.718 Personal history of other venous thrombosis and embolism; Z79.01 Long term (current) use of anticoagulants; Z86.711 Personal history of pulmonary embolism
CPT/HCPCS: G0378; J2997; Q9967

== ENCOUNTER 2018-01-27 06:21 | Day surgery (SDC) | payer MEDICARE, OTHER ==
[~2018-01-27] VITALS: Ht 165.1 cm; Wt 150.6 kg
[~2018-01-27 06:21] MED LIST changes: +DICYCLOMINE10 MG PO; +FLONASE AL50 MCG/ACT NAB; +GABAPENTIN100 MG PO; +JANTOVEN5 MG PO; +LORATADINE10 M1 PO; +NYSTATIN100000 UN1 PO; +OXYCODONE HCL5 MG PO; +PROBIOTIC ACIDO1 CA1 PO; +SERTRALINE50 MG PO; +WARFARIN2.5 MG PO; +ZOFRAN4 MG/TAB PO
[2018-01-27 07:50] LABS: ACT PARTIAL THROMBO TIME 41.8 SECONDS (20.0-32.5); INTERNATIONAL NORMALIZED RATIO 2.3 RATIO (0.7-1.3); PROTHROMBIN TIME 23.4 SECONDS (9.0-12.5)
[2018-01-27] MEDS ORDERED: TYLENOL 500MG TAB PO (09:53)
[2018-01-27] MEDS ORDERED: CIPROFLOXACN500 MG PO (09:53)
[2018-01-27] MEDS ORDERED: GABAPENTIN100 MG PO (09:53)
[2018-01-27 11:33] VITALS: BP 140/78
== END 2018-01-27 11:30 | disposition home or self-care (01) ==
LOC: ORM 06:21
PROVIDERS: ATTEND Urology
PROC: 0TF48ZZ Fragmentation in Left Kidney Pelvis, Via Natural or Artificial Opening Endoscopic (ICD-10-PCS; principal; 2018-01-27)
PROC: 0T778DZ Dilation of Left Ureter with Intraluminal Device, Via Natural or Artificial Opening Endoscopic (ICD-10-PCS; 2018-01-27)
PROC: 0TP98DZ Removal of Intraluminal Device from Ureter, Via Natural or Artificial Opening Endoscopic (ICD-10-PCS; 2018-01-27)
PROC: BT1F1ZZ Fluoroscopy of Left Kidney, Ureter and Bladder using Low Osmolar Contrast (ICD-10-PCS; 2018-01-27)
DX: N13.2 Hydronephrosis with renal and ureteral calculous obstruction (principal); I10 Essential (primary) hypertension; I25.10 Atherosclerotic heart disease of native coronary artery without angina pectoris; M19.90 Unspecified osteoarthritis, unspecified site; E66.01 Morbid (severe) obesity due to excess calories; Z86.711 Personal history of pulmonary embolism; Z79.01 Long term (current) use of anticoagulants
CPT/HCPCS: J2710; Q9967

== ENCOUNTER 2018-05-30 15:14 | Emergency (ER) | payer MEDICARE, OTHER ==
[~2018-05-30] VITALS: Ht 165.1 cm; Wt 145.0 kg
[~2018-05-30 15:14] MED LIST changes: +TYLENOL 500MG TAB PO
[2018-05-30 16:14] LABS: INTERNATIONAL NORMALIZED RATIO 2.4 RATIO (0.7-1.3); PROTHROMBIN TIME 25.4 SECONDS (9.0-12.5)
[2018-05-30] MEDS ORDERED: PERCOCET 5/325M1 TAB PO (17:51)
[2018-05-30 17:54] VITALS: BP 130/74
== END 2018-05-30 18:17 | disposition home or self-care (01) ==
LOC: ED 15:14
PROVIDERS: Emergency Medicine
DX: S02.2XXA Fracture of nasal bones, initial encounter for closed fracture (principal); S00.31XA Abrasion of nose, initial encounter; S00.83XA Contusion of other part of head, initial encounter; S46.912A Strain of unspecified muscle, fascia and tendon at shoulder and upper arm level, left arm, initial encounter; S80.01XA Contusion of right knee, initial encounter; I10 Essential (primary) hypertension; M19.90 Unspecified osteoarthritis, unspecified site; W01.0XXA Fall on same level from slipping, tripping and stumbling without subsequent striking against object, initial encounter; Y92.009 Unspecified place in unspecified non-institutional (private) residence as the place of occurrence of the external cause; Z79.01 Long term (current) use of anticoagulants; Z86.711 Personal history of pulmonary embolism

== ENCOUNTER 2019-06-26 12:23 | Inpatient (IN) | payer MEDICARE, OTHER ==
[~2019-06-26] VITALS: Ht 165.1 cm; Wt 148.0 kg
[~2019-06-26 12:23] MED LIST changes: +PERCOCET 5/325M1 TAB PO
[2019-06-26] MEDS ORDERED: LEVOTHYROXIN125 MCG PO (12:48)
[2019-06-26 13:16] LABS: HEMATOCRIT 43.9 % (37.0-47.0); HEMOGLOBIN 14.1 g/dl (12.0-16.0); IMMATURE GRANULOCYTES 0.5 % (0.0-5.0); MEAN CELL VOLUME 98.2 fL CALC (80.0-100.0); MEAN CORPUSCULAR HGB 31.5 pG CALC (26.0-32.0); MEAN CORPUSCULAR HGB CONC 32.1 g/dL CAL (32.0-36.0); NEUT# 6.06 thou/uL (2.00-7.15); RED BLOOD COUNT 4.47 mill/uL (4.20-5.60); RED CELL DISTRI WIDTH 13.2 % (11.5-15.5)
[2019-06-26 13:25] LABS: ALBUMIN 4.5 g/dL (3.2-5.0); ALKALINE PHOSPHATASE 76 u/l (38-126); ANION GAP 15 (6-22 (CALC)); BILIRUBIN, TOTAL 0.7 mg/dL (0.0-1.4); BUN 17 mg/dL (8-23); BUN/CREATININE RATIO 19 (12-20 (CALC)); CARBON DIOXIDE 22 mmol/l (22-30); CHLORIDE 105 mmol/l (95-108); CREATININE 0.9 mg/dL (0.5-1.0); GFR > 60 ML/MIN (>=60 (CALC)); GFR FOR AFR.AMER. > 60 ML/MIN (>=60 (CALC)); POTASSIUM 4.3 mmol/l (3.5-5.1); SGOT/AST 36 u/l (9-36); SODIUM 137 mmol/l (137-146); TOTAL PROTEIN 7.8 g/dL (6.3-8.2)
[2019-06-26 13:42] LABS: URINE BILIRUBIN - DIPSTICK NEGATIVE (NEGATIVE); URINE BLOOD DIPSTICK NEGATIVE (NEGATIVE); URINE COLOR YELLOW; URINE GLUCOSE - DIPSTICK NEGATIVE (NEGATIVE); URINE KETONE NEGATIVE (NEGATIVE); URINE LEUK ESTERASE NEGATIVE (NEGATIVE); URINE NITRITE - DIPSTICK NEGATIVE (Negative); URINE PH 6.5 (4.5-8.0); URINE PROTEIN - DIPSTICK NEGATIVE (NEG-TRACE); URINE SPECIFIC GRAVITY <=1.005; URINE UROBILINOGEN - DIPSTICK 0.2 E.U./dL (0.2)
[2019-06-26 13:54] LABS: INTERNATIONAL NORMALIZED RATIO 2.2 RATIO (0.7-1.3); PROTHROMBIN TIME 22.6 SECONDS (9.0-12.5)
[2019-06-26 15:15] VITALS: BP 153/60
[2019-06-26 19:30] VITALS: BP 121/60
[2019-06-27 00:30] VITALS: BP 123/54
[2019-06-27 04:00] VITALS: BP 109/59
[2019-06-27 10:45] VITALS: BP 134/60
[2019-06-27 16:15] VITALS: BP 151/73
[2019-06-27 19:05] VITALS: BP 100/51
[2019-06-28 00:03] VITALS: BP 110/52
[2019-06-28 04:05] VITALS: BP 141/60
[2019-06-28 05:31] LABS: HEMATOCRIT 40.4 % (37.0-47.0); HEMOGLOBIN 12.8 g/dl (12.0-16.0); MEAN CELL VOLUME 98.8 fL CALC (80.0-100.0); MEAN CORPUSCULAR HGB 31.3 pG CALC (26.0-32.0); MEAN CORPUSCULAR HGB CONC 31.7 g/dL CAL (32.0-36.0); RED BLOOD COUNT 4.09 mill/uL (4.20-5.60); RED CELL DISTRI WIDTH 13.8 % (11.5-15.5)
[2019-06-28 05:45] LABS: ANION GAP 12 (6-22 (CALC)); BUN 19 mg/dL (8-23); BUN/CREATININE RATIO 20 (12-20 (CALC)); CALCULATED LDLCHOLESTEROL 109 mg/dL (62-129 (CALC)); CARBON DIOXIDE 24 mmol/l (22-30); CHLORIDE 105 mmol/l (95-108); CHOLESTEROL HDL RATIO 3.6 (<4.4 (CALC)); GFR 55 ML/MIN (>=60 (CALC)); GFR FOR AFR.AMER. > 60 ML/MIN (>=60 (CALC)); HDL CHOLESTEROL 55 mg/dL (>=40); SODIUM 137 mmol/l (137-146); TOTAL CHOLESTEROL 197 mg/dl (0-199); TOTAL TRIGLYCERIDES 163 mg/dl (30-149); VLDL CHOLESTROL 33 mg/dl (0-48 (CALC))
[2019-06-28 06:00] LABS: MAGNESIUM 2.1 mg/dL (1.6-2.3)
[2019-06-28 07:48] LABS: INTERNATIONAL NORMALIZED RATIO 1.8 RATIO (0.7-1.3); PROTHROMBIN TIME 18.8 SECONDS (9.0-12.5)
[2019-06-28 08:19] VITALS: BP 147/63
[2019-06-28 10:55] VITALS: BP 121/59
[2019-06-28 15:40] VITALS: BP 127/68
[2019-06-28 20:13] VITALS: BP 108/58
[2019-06-29 00:16] VITALS: BP 132/62
[2019-06-29 04:35] VITALS: BP 131/82
[2019-06-29 05:20] LABS: HEMATOCRIT 41.4 % (37.0-47.0); HEMOGLOBIN 13.2 g/dl (12.0-16.0); MEAN CORPUSCULAR HGB 31.6 pG CALC (26.0-32.0); MEAN CORPUSCULAR HGB CONC 31.9 g/dL CAL (32.0-36.0); RED BLOOD COUNT 4.18 mill/uL (4.20-5.60); RED CELL DISTRI WIDTH 13.7 % (11.5-15.5)
[2019-06-29 05:28] LABS: ANION GAP 13 (6-22 (CALC)); BUN 17 mg/dL (8-23); BUN/CREATININE RATIO 16 (12-20 (CALC)); CARBON DIOXIDE 23 mmol/l (22-30); CHLORIDE 107 mmol/l (95-108); GFR 55 ML/MIN (>=60 (CALC)); GFR FOR AFR.AMER. > 60 ML/MIN (>=60 (CALC)); MAGNESIUM 1.9 mg/dL (1.6-2.3); POTASSIUM 4.2 mmol/l (3.5-5.1); SODIUM 138 mmol/l (137-146)
[2019-06-29 08:00] VITALS: BP 128/62
[2019-06-29 09:53] LABS: INTERNATIONAL NORMALIZED RATIO 1.5 RATIO (0.7-1.3); PROTHROMBIN TIME 15.1 SECONDS (9.0-12.5)
[2019-06-29 11:49] VITALS: BP 129/72
[2019-06-29 16:30] VITALS: BP 138/75
[2019-06-29 19:00] VITALS: BP 160/80
[2019-06-30 04:00] VITALS: BP 143/56
[2019-06-30 08:09] VITALS: BP 140/70
[2019-06-30 09:12] LABS: INTERNATIONAL NORMALIZED RATIO 1.5 RATIO (0.7-1.3); PROTHROMBIN TIME 15.7 SECONDS (9.0-12.5)
[2019-06-30] MEDS ORDERED: DOXYCYCL HYC100 MG PO (11:16)
[2019-06-30] MEDS ORDERED: PREDNISONE10 MG PO (11:16)
[2019-06-30 11:30] VITALS: BP 143/61
[2019-06-30] MEDS ORDERED: MUCINEX600 MG PO (14:03)
== END 2019-06-30 14:28 | disposition home or self-care (01) | DRG 192 ==
LOC: ED 12:23 → ED-I 13:23 → ED 14:20 → MS2 14:21
PROVIDERS: Nurse Practitioner Family; ADMIT Internal Medicine; ATTEND Internal Medicine
DX: J44.1 Chronic obstructive pulmonary disease with (acute) exacerbation (principal); J02.0 Streptococcal pharyngitis; I10 Essential (primary) hypertension; I25.10 Atherosclerotic heart disease of native coronary artery without angina pectoris; E03.9 Hypothyroidism, unspecified; Z86.711 Personal history of pulmonary embolism; Z79.01 Long term (current) use of anticoagulants; Z77.22 Contact with and (suspected) exposure to environmental tobacco smoke (acute) (chronic); Z88.1 Allergy status to other antibiotic agents; Z20.828 Contact with and (suspected) exposure to other viral communicable diseases
CPT/HCPCS: G0378; J3370

== ENCOUNTER 2020-09-21 20:47 | Inpatient (IN) | payer MEDICARE, OTHER ==
[~2020-09-21] VITALS: Ht 165.1 cm; Wt 156.0 kg
[~2020-09-21 20:47] MED LIST changes: +LEVOTHYROXIN125 MCG PO; +MUCINEX600 MG PO; +PREDNISONE10 MG PO
--- NOTE | 2020-09-21 20:49 | NUR ---
BY WC TO ROOM
--- NOTE | 2020-09-21 21:50 | NUR ---
RARE DRUG AND ALCOHOL COUNSELOR COUGH NO DYSPNEA NO CP
[2020-09-21] MEDS ORDERED: LEXAPRO10 MG PO (22:01)
[2020-09-21] MEDS ORDERED: WELLBUTRIN SR100 MG PO (22:02)
--- NOTE | 2020-09-21 22:20 | NUR ---
PT STANDS AND SITS ON BSC TO VOID NO SOB NO COUGH NO DYSPNEA NOR TACHYCARDIA
[2020-09-21 22:23] LABS: ALKALINE PHOSPHATASE 64 u/l (38-126); ANION GAP 14 (6-22 (CALC)); BUN 18 mg/dL (8-23); BUN/CREATININE RATIO 20 (12-20 (CALC)); CARBON DIOXIDE 24 mmol/l (22-30); CHLORIDE 103 mmol/l (95-108); CREATININE 0.9 mg/dL (0.5-1.0); GFR > 60 ML/MIN (>=60 (CALC)); GFR FOR AFR.AMER. > 60 ML/MIN (>=60 (CALC)); SGOT/AST 27 u/l (9-36); SODIUM 137 mmol/l (137-146); TOTAL PROTEIN 7.4 g/dL (6.3-8.2)
[2020-09-21 22:24] LABS: BILIRUBIN, TOTAL 0.4 mg/dL (0.0-1.4)
[2020-09-21 22:32] LABS: D-DIMER 5.09 mg/L (0.19-0.60)
[2020-09-21 22:43] LABS: HEMATOCRIT 43.5 % (37.0-47.0); HEMOGLOBIN 14.3 g/dl (12.0-16.0); IMMATURE GRANULOCYTES 0.2 % (0.0-5.0); MEAN CELL VOLUME 99.1 fL CALC (80.0-100.0); MEAN CORPUSCULAR HGB 32.6 pG CALC (26.0-32.0); MEAN CORPUSCULAR HGB CONC 32.9 g/dL CAL (32.0-36.0); NEUT# 6.44 thou/uL (2.00-7.15); RED BLOOD COUNT 4.39 mill/uL (4.20-5.60); RED CELL DISTRI WIDTH 13.6 % (11.5-15.5)
[2020-09-21 22:44] LABS: URINE BILIRUBIN - DIPSTICK NEGATIVE (NEGATIVE); URINE BLOOD DIPSTICK NEGATIVE (NEGATIVE); URINE COLOR YELLOW; URINE GLUCOSE - DIPSTICK NEGATIVE (NEGATIVE); URINE KETONE NEGATIVE (NEGATIVE); URINE LEUK ESTERASE NEGATIVE (NEGATIVE); URINE PROTEIN - DIPSTICK NEGATIVE (NEG-TRACE); URINE UROBILINOGEN - DIPSTICK 0.2 E.U./dL (0.2)
[2020-09-21 22:45] LABS: URINE NITRITE - DIPSTICK NEGATIVE (Negative)
--- NOTE | 2020-09-21 23:36 | NUR ---
A/OX3 RARE HAT SIZER COUGH NO SOB NO PAIN NO SOB STATES SHE IS ABLE TO BREATHE EASIER
--- NOTE | 2020-09-22 00:30 | NUR ---
W/P/D SKIN A/OX3 NO DYSPNEA NO COUGH
--- NOTE | 2020-09-22 01:30 | NUR ---
W/P/D SKIN NO DYSPNEA A/UX3
--- NOTE | 2020-09-22 01:35 | NUR ---
A/OX3 PN O2 2L NO SOB NO PAIN .NO COUGH
--- NOTE | 2020-09-22 01:50 | NUR ---
PHONE REPORT TO NURSE HENSON ON MS
--- NOTE | 2020-09-22 01:55 | NUR ---
PT TRANSPORTEWD TO MS RM 278 VIA STRETCHER ON TELE AND O2 IN STAABLE CONDITION
[2020-09-22 02:10] VITALS: BP 152/60
--- NOTE | 2020-09-22 02:10 | NUR ---
PT ARRIVED TO MED SURG UNIT VIA STRETCHER ACCOMPANIED BY ED NURSE. PT ORIENTED TO ROOM. SHE SELF AMBULATED TO THE BED FROM THE STRETCHER. SHE ASKED IF SHE CAN AMBULATE TO THE RESTROOM BY HERSELF, I ASKED HER TO CALL FOR ASSISTANCE, AGREED. SHE REPORTS HAVING HAD RECENT FALL IN THE LAST 3 MONTHS AND SOME DIZZINESS RECENTLY. PT ORIENTED TO CALL SYSTEM, LIGHTS, TV AND BED.
--- NOTE | 2020-09-22 02:30 | NUR ---
PT ASSESSMENT COMPLETED. PT C/O MILD NECK PAIN ASKED FOR ICEPACK/PROVIDED. PT LOCX4. RESP ARE REG AND NON-LABORED AT THIS TIME. V/S HAVE BEEN ASSESSED STABLE. OXYGEN SAT 95% ON 2LNC. RESP IN WITH PT SETTING UP OXYGEN TO CPAP AT BEDSIDE. ED CALLED FOR CLARIFICATION OF DIET. ORDERS SHOW PT TO BE NPO, BUT PT STATES THAT THEY TOLD HER TO BE SURE AND FLUSH HER KIDNEYS AFTER CTA TEST. WAITING FOR CALL BACK FROM ED PHYSICIAN REGARDING ORDERS FOR DIET. ED NURSE WAS UNABLE TO GIVE EXPLANATION TO PT REGARDING NPO ORDER.
[2020-09-22 03:56] VITALS: BP 130/75
--- NOTE | 2020-09-22 04:33 | NUR ---
PT IS SLEEPING NO S/O DISTRESS NOTED AT THIS TIME. RESP APPEAR EVEN AND NON-LABORED.
--- NOTE | 2020-09-22 07:00 | NUR ---
PT REPORT RECEIVED FROM NIGHT NURSENATIVIDAD
[2020-09-22 07:50] VITALS: BP 122/71
--- NOTE | 2020-09-22 08:00 | NUR ---
PT WAS FOUND RESTING IN BED;PT IS A&OX3;VS AND ASSESSMENT WERE COMPLETED;HEART SOUNDS ARE REGULAR IN RATE AND RHYTHM;TELE IS IN PLACE;LUNG SOUNDS ARE DIMINISHED;RESPIRATIONS ARE EVEN AND UNLABORED ON O2@2L VIA NC;PT HAS GENERALIZED 2+EDEMA PRESENT;#20G IV IN LAC IS SL. PATENT AND APPEARS FREE OF COMPLICATIONS AT THIS TIME;SAFETY PRECAUTIONS IN PLACE;CALL LIGHT WITHIN REACH;BED IN LOWEST POSITION;PT ENCOURAGED TO CALL WITH ANY NEEDS OR CONCERNS;WILL CONTINUE TO MONITOR.
--- NOTE | 2020-09-22 12:00 | NUR ---
PT WAS FOUND RESTING IN BED EATING LUNCH;TELE IS IN PLACE;O2@2L VIA NC IS IN PLACE;SAFETY PRECAUTIONS IN PLACE;CALL LIGHT WITHIN REACH;BED IN LOWEST POSITION;WILL CONTINUE TO MONITOR.
[2020-09-22 18:55] VITALS: BP 99/58
--- NOTE | 2020-09-22 20:00 | NUR ---
PT MEDICATED ORDERS PROVIDE. PT DENIES SOB AT THIS TIME. OXYGEN NC ON @2L. 700CC OF CLEAR YELLOW URINE EMPTIED FROM TOILET HAT AT THIS TIME. PT DENIES ANY OTHER NEEDS.
--- NOTE | 2020-09-22 21:55 | NUR ---
PT CALLED TO REPORT FEELING A DESCRIBED BY PT "A LITTLE TENDER SPOT" ON THE UPPER BACK OF HER CALF. I INSPECTED HER R.CALF IN THE AREA THAT SHE DESCRIBED. NO VISUALIZED REDNESS OR HOT AREAS. SHE STATED IT DOESN'T HURT WITHOUT HER PUSHING ON IT. I INSTRUCTED HER TO CALL IF THIS INCREASES OR GETS WORSE. WILL CONTINUE TO MONITOR FOR REDNESS OR WARMNESS.
[2020-09-22 23:32] VITALS: BP 114/68
[2020-09-23 04:20] VITALS: BP 134/72
--- NOTE | 2020-09-23 04:42 | NUR ---
PT IS SITTING ON THE SIDE OF THE BED BRUSHING HER TEETH. I ASSISTED HER CLEANING UP AND REARRANGING BST AND GETTING BACK INTO THE BED. MEDICATION ADMINISTERED AT THIS TIME SYNTHROID DOSE ORDERED AND CPAP PLACED BACK ON. DENIES ANY OTHER NEEDS OF ASSISTANCE. ARMS ELEVATED WITH PILLOWS FOR COMFORT. CALL LIGHT NEXT TO HER HAND.
--- NOTE | 2020-09-23 07:00 | NUR ---
PT REPORT RECEIVED FROM NIGHT NURSENATIVIDAD
[2020-09-23 07:50] LABS: HEMOGLOBIN 14.3 g/dl (12.0-16.0); MEAN CELL VOLUME 100.2 fL CALC (80.0-100.0); MEAN CORPUSCULAR HGB 32.6 pG CALC (26.0-32.0); MEAN CORPUSCULAR HGB CONC 32.5 g/dL CAL (32.0-36.0); RED BLOOD COUNT 4.39 mill/uL (4.20-5.60); RED CELL DISTRI WIDTH 13.6 % (11.5-15.5)
--- NOTE | 2020-09-23 08:00 | NUR ---
PT WAS FOUND RESTING IN BED IN SEMI-MCMAHON'S POSITION;PT IS A&OX3;VS AND ASSESSMENT WERE COMPLETED;PT HAS NO REPORTS OF PAIN AT THIS TIME;HEART SOUNDS ARE REGULAR IN RATE AND RHYTHM;TELE IS IN PLACE;LUNG SOUNDS ARE DIMINISHED THROUGHOUT;RESPIRATIONS ARE EVEN AND UNLABORED ON O2@2L VIA NC;#20G IV IN LAC IS SL,PATENT AND APPEARS FREE OF COMPLICATIONS AT THIS TIME;PT HAS GENERALIZED 2+EDEMA PRESENT;SAFETY PRECAUTIONS IN PLACE;CALL LIGHT WITHIN REACH;BED IN LOWEST POSITION;PT ENCOURAGED TO CALL WITH ANY ISSUES OR CONCERNS;WILL CONTINUE TO MONITOR;
[2020-09-23 08:03] LABS: ANION GAP 13 (6-22 (CALC)); BUN 15 mg/dL (8-23); BUN/CREATININE RATIO 15 (12-20 (CALC)); CARBON DIOXIDE 26 mmol/l (22-30); CHLORIDE 102 mmol/l (95-108); GFR 54 ML/MIN (>=60 (CALC)); GFR FOR AFR.AMER. > 60 ML/MIN (>=60 (CALC)); MAGNESIUM 2.1 mg/dL (1.6-2.3); POTASSIUM 4.3 mmol/l (3.5-5.1); SODIUM 137 mmol/l (137-146)
[2020-09-23 10:22] VITALS: BP 119/67
--- NOTE | 2020-09-23 12:00 | NUR ---
PT WAS FOUND SITTING UP IN BED EATING LUNCH;PT HAS NO REPORTS OF PAIN AT THIS TIME;TELE IS IN PLACE;O2@2L VIA NC IS IN PLACE;HUMDIFIED WATER WAS ADDED TO O2 TO HELP WITH DRYNESS IN THE NOSE;SAFETY PRECAUTIONS IN PLACE;CALL LIGHT WITHIN REACH;WILL CONTINUE TO MONITOR.
[2020-09-23] MEDS ORDERED: OXY1 (12:17)
[2020-09-23 15:39] VITALS: BP 124/75
--- NOTE | 2020-09-23 16:00 | NUR ---
PT WAS FOUND RESTING IN BED;TELE IS IN PLACE;O2@2L VIA NC IS IN PLACE;PT REQUESTED A REFILL OF ICE FOR HER NECK TO HELP WITH WARMTH AND NECK DISCOMFORT;#20G IV IN LAC IS SL, PATENT AND APPEARS FREE OF COMPLICATIONS AT THIS TIME;SAFETY PRECAUTIONS IN PLACE;CALL LIGHT WITHIN REACH;WILL CONTINUE TO MONITOR.
[2020-09-23 20:00] VITALS: BP 115/59
--- NOTE | 2020-09-23 20:12 | NUR ---
PHYSICAL ASSESMENT COMPLETE. PT CURRENTLY DENIES PAIN OR DISCOMFORT. SCHEDULED MEDICATIONS AND PRN MEDICATION ADMINISTERED, SEE E-MAR. PT DENIES ANY NEEDS AT THIS TIME. PLAN OF CARE REVIEWED, PT DENIES QUESTIONS, VERBALIZES UNDERSTANDING. ITEMS WITHIN REACH, BED LOCKED IN LOW POSITION W/ BEDRAILS UP X2. CALL YEE WITHIN REACH, AGREES TO CALL PRN.
[2020-09-23 23:51] VITALS: BP 121/65
--- NOTE | 2020-09-24 00:56 | NUR ---
PT LAYING IN BED WITH EYES CLOSED, APPEARS TO BE SLEEPING, APPEARS COMFORTABLE AND IN NO DISTRESS. RESPIRATIONS REGULAR AND UNLABORED. ITEMS REMAIN WITHIN REACH, CALL YEE REMAINS WITHIN REACH. BED REMAINS LOCKED AND IN LOW POSITION WITH BEDRAILS UP X2. WILL CONTINUE TO MONITOR.
--- NOTE | 2020-09-24 03:58 | NUR ---
PT RESTING IN BED, NO SIGNS OF DISTRESS NOTED, RESP EVEN AND UNLABORED. PT VOICES NO NEEDS OR COMPLAINTS AT THIS TIME. CALL LIGHT IN REACH, CONTINUE TO MONITOR.
[2020-09-24 04:00] VITALS: BP 117/64
--- NOTE | 2020-09-24 07:00 | NUR ---
RECIEVED REPORT FROM YULIYA HILARIO
--- NOTE | 2020-09-24 07:42 | NUR ---
PT RESTING IN SEMI FOWLERS POSTITION. PT IS A/O X3.ASSESSMENT AND VITALS COMPLETED. BP 130/64, HR 59, O2 94% ON 2L NC. RESPIRATIONS ARE EVEN AND UNLABORED WITH NO DISTRESS.HOME CPAP AND O2 AT BEDSIDE. LUNG SOUNDS ARECLEAR. HEART RHYTHM NORMAL WITH TELE IN PLACE. BOWEL SOUNDS ARE ACTIVE.#20G LAC INFILTRATED, SITE RED/SWOLLEN/PAINFUL. REMOVED WITH CATHATER STILL INTACT.PT REFUSES NEW IV DUE TO POSSIBLE DC TODAY AND BEING A HARD STICK. MD TO BE NOTIFIED. PT NOTIFIED IF NOT DC, NEW IV WILL BE NEEDED. PT VERBLAIZED UNDERSTANDING. SKIN INTACT. 2+ EDEMEA NOTED TO BLE. PEDAL PULSES WEAK. MILD HIVES NOTED THROUGHOUT. NEW ORDER FOR PO BENADRYL TO BE OBTAINED. PT DENIES OF ANY PAINS, JUST INTCHING. ALL SAFETY PRECAUTIONS ARE IN PLACE WITH CALL LIGHT IN REACH.WILL CONTINUE TO MONITOR.
[2020-09-24 07:53] VITALS: BP 130/64
--- NOTE | 2020-09-24 08:43 | NUR ---
ORDER FOR PO BENADRYL OBTAINED. SENT TO PHARMACY. NOTIFIED OF NO IV.
[2020-09-24 11:07] VITALS: BP 121/61
--- NOTE | 2020-09-24 11:35 | NUR ---
DR MUNSON AT BEDSIDE
--- NOTE | 2020-09-24 11:56 | NUR ---
PT SITTING UP IN HIGH FOWLERS POSITION EATING LUNCH. RESPIRATIONS ARE EVEN AND UNLABORED WITH NO DISTRESS ON 2L NC. ULTRAM ADMINISTERED FOR PAIN. TELE MONITOR IN PLACE. PT DENIES OF ANY ADDITIONAL NEEDS AT THIS TIME. ALL SAFETY PRECAUTIONS ARE IN PLACE. WILL CONTINUE TO MONITOR.
--- NOTE | 2020-09-24 12:21 | NUR ---
PER DR MUNSON. PT CAN REMAIN WITHOUT IV ACESS OF PT REFUSES.
--- NOTE | 2020-09-24 14:48 | NUR ---
PT AT BEDSIDE
[2020-09-24 15:01] VITALS: BP 95/52
--- NOTE | 2020-09-24 15:50 | NUR ---
Patient did B LE AROM exercises today: hip and knee flexion and extension, hip adduction and abduction, hamstring curls, SLR, gluteal squeezes, and ankle AROM for 10 reps x 2-3 sets with constant verbal and tactile cuing to help decrease trick movements and fall risks. Patient also did log rolling supine to sitting bed mobility and sit to stand push off ADLs with constant verbal and tactile cuing (patient feeling tired today with lack of sleep due to allergic reaction to some medication last night - scratched herself the whole time - moved somewhat sluggish doing transfer protocol) for 3 reps per ADL.
--- NOTE | 2020-09-24 16:33 | NUR ---
PT RESTING IN SEMI FOWLERS POSITION. PT REMAINS A/O X3. REPSIRATIONS ARE EVEN AND UNLABORED ON 2L NC. HOE CPAP AND O2 AT BEDSIDE. TELE MONITORING IN PLACE. NEW ICE PACK PROVIDED FOR BACK. PT DENIES OF ANY NEEDS AT THIS TIME. ALL SAFETY PRECAUTIONS ARE IN PLACE WITH CALL LIGHT IN REACH. WILL CONTINUE TO MONITOR.
[2020-09-24 17:40] VITALS: BP 139/57
[2020-09-24 20:00] VITALS: BP 112/66
[2020-09-25] VITALS: BP 115/67
[2020-09-25 04:00] VITALS: BP 111/64
[2020-09-25 05:46] LABS: HEMATOCRIT 45.5 % (37.0-47.0); HEMOGLOBIN 14.3 g/dl (12.0-16.0); MEAN CELL VOLUME 101.3 fL CALC (80.0-100.0); MEAN CORPUSCULAR HGB 31.8 pG CALC (26.0-32.0); MEAN CORPUSCULAR HGB CONC 31.4 g/dL CAL (32.0-36.0); RED BLOOD COUNT 4.49 mill/uL (4.20-5.60); RED CELL DISTRI WIDTH 13.3 % (11.5-15.5)
[2020-09-25 05:58] LABS: INTERNATIONAL NORMALIZED RATIO 1.1 RATIO (0.7-1.3); PROTHROMBIN TIME 11.2 SECONDS (9.0-12.5)
[2020-09-25 06:02] LABS: ANION GAP 16 (6-22 (CALC)); BUN 25 mg/dL (8-23); BUN/CREATININE RATIO 24 (12-20 (CALC)); CHLORIDE 103 mmol/l (95-108); GFR 54 ML/MIN (>=60 (CALC)); GFR FOR AFR.AMER. > 60 ML/MIN (>=60 (CALC)); POTASSIUM 4.5 mmol/l (3.5-5.1); SODIUM 134 mmol/l (137-146)
[2020-09-25 06:13] LABS: CARBON DIOXIDE 20 mmol/l (22-30)
[2020-09-25 07:57] VITALS: BP 131/69
--- NOTE | 2020-09-25 08:00 | NUR ---
SHIFT CHANGE REPORT, PT AWAKE ALERT AND ORIENTED SITTING UP IN BED, C/O SEVERE ITCHING IN HANDS AT THIS TIME, OFFERED BENADRYL BUT PT STATES SHE ALREADY HAD ONE COUPLE HOURS AGO WHICH WAS NOT SHOWN IN DOCUMENTATION. SHE ALSO STATED SHE GOT A SHOT OF STEROID YESTERDAY WHICH RELIEVED HER ITCH AND WANTED MORE, FILLING MACHINE OPERATOR INFORMED AND SAID WOULD GIVE HER ORAL STEROID, PT INFORMED OF PLAN. TELE MONITOR IN PLACE, CALL YEE IN REACH AND BED LOCKED IN LOWEST POSITION.
[2020-09-25 11:10] VITALS: BP 118/70
--- NOTE | 2020-09-25 12:00 | NUR ---
C/O ITCHING TO HANDS, MEDICATED, WILL CONTINUE TO MONITOR.
--- NOTE | 2020-09-25 15:40 | NUR ---
HAVING SHOWER AT THIS TIME, NO NEW COMPLAINS, CALL YEE IN REACH.
[2020-09-25 16:38] VITALS: BP 126/75
[2020-09-25 19:26] VITALS: BP 133/67
[2020-09-26 00:24] VITALS: BP 135/74
[2020-09-26 04:00] VITALS: BP 134/70
[2020-09-26 06:07] LABS: HEMOGLOBIN 14.4 g/dl (12.0-16.0); MEAN CELL VOLUME 106.1 fL CALC (80.0-100.0); MEAN CORPUSCULAR HGB 32.5 pG CALC (26.0-32.0); MEAN CORPUSCULAR HGB CONC 30.6 g/dL CAL (32.0-36.0); RED BLOOD COUNT 4.43 mill/uL (4.20-5.60); RED CELL DISTRI WIDTH 13.9 % (11.5-15.5)
[2020-09-26 06:30] LABS: ANION GAP 14 (6-22 (CALC)); BUN 25 mg/dL (8-23); BUN/CREATININE RATIO 29 (12-20 (CALC)); CARBON DIOXIDE 22 mmol/l (22-30); CHLORIDE 104 mmol/l (95-108); CREATININE 0.9 mg/dL (0.5-1.0); GFR > 60 ML/MIN (>=60 (CALC)); GFR FOR AFR.AMER. > 60 ML/MIN (>=60 (CALC)); POTASSIUM 4.5 mmol/l (3.5-5.1); SODIUM 136 mmol/l (137-146)
[2020-09-26 06:41] LABS: INTERNATIONAL NORMALIZED RATIO 1.1 RATIO (0.7-1.3); PROTHROMBIN TIME 11.5 SECONDS (9.0-12.5)
[2020-09-26 07:25] VITALS: BP 146/64
--- NOTE | 2020-09-26 07:56 | NUR ---
SHIFT CHANGE REPORT, PT AWAKE ALERT AND ORIENTED RESTING IN BED, C/O CONTINUED ITCHING TO HANDS, ABD AND LEGS, THERE ARE SMALL SCATTERED AREAS OF REDNESS BUT NO RAISED RASH ON ASSESSMENT, SHE ALSO STATED SOLUMEDROL HAD RELIEVED THE ITCH BUT IT RETURNED AFTER FEW HOURS, ADVISED WILL INFORM MD OF CONTINUING CONDITION. TELE MONITOR IN PLACE, CALL YEE IN REACH AND BED LOCKED IN LOWEST POSITION.
[2020-09-26 10:59] VITALS: BP 128/63
[2020-09-26] MEDS ORDERED: WARFARIN5 MG PO (12:10)
[2020-09-26] MEDS ORDERED: ENOXAPARIN80 MG/0.1 SC (12:12)
[2020-09-26] MEDS ORDERED: HYDROXYZ HCL25 MG PO (12:12)
[2020-09-26] MEDS ORDERED: MEDDOSEPAK PO (12:14)
--- NOTE | 2020-09-26 12:23 | NUR ---
MEDICAL TEAM ROUNDED AND DISCUSSED PLAN OF CARE. PT SITTING UP IN BED NOW HAVING MEAL, ALL NEEDS ADDRESSED, WILL CONTINUE TO MONITOR.
--- NOTE | 2020-09-26 14:45 | NUR ---
REPORT CALLED TO VALERIE DWYER ON MED [facility]
[2020-09-26 15:05] VITALS: BP 115/49
--- NOTE | 2020-09-26 16:21 | NUR ---
Discharge instructions given. Patient verbalizes understanding of same. Discharged in good condition via Wheelchair to Home with family. All belongings sent with pt.
== END 2020-09-26 14:22 | disposition home health service (06) | DRG 176 ==
LOC: ED 20:47 → ED-I 09-22 00:50 → ED 09-22 01:49 → MS2 09-22 01:50
PROVIDERS: Family Medicine; Internal Medicine; Nurse Practitioner; ADMIT Internal Medicine; ATTEND Internal Medicine
DX: I26.94 Multiple subsegmental thrombotic pulmonary emboli without acute cor pulmonale (principal); Z68.43 Body mass index [BMI] 50.0-59.9, adult; R09.02 Hypoxemia; I10 Essential (primary) hypertension; I25.10 Atherosclerotic heart disease of native coronary artery without angina pectoris; J44.9 Chronic obstructive pulmonary disease, unspecified; G47.33 Obstructive sleep apnea (adult) (pediatric); L50.0 Allergic urticaria; T45.515A Adverse effect of anticoagulants, initial encounter; E66.01 Morbid (severe) obesity due to excess calories; Z86.711 Personal history of pulmonary embolism; Z20.822 Contact with and (suspected) exposure to COVID-19
CPT/HCPCS: J1650; Q9967

== ENCOUNTER 2020-11-07 10:23 | Emergency (ER) | payer MEDICARE, OTHER ==
[~2020-11-07 10:23] MED LIST changes: +ENOXAPARIN80 MG/0.1 SC; +HYDROXYZ HCL25 MG PO; +LEXAPRO10 MG PO; +MEDDOSEPAK PO; +OXY1; +WARFARIN5 MG PO; +WELLBUTRIN SR100 MG PO
[2020-11-07] MEDS ORDERED: ONDANSETRON4 MG PO (13:25)
[2020-11-07] MEDS ORDERED: HYDROCO/APAP1 T10 PO (13:25)
[2020-11-07 13:31] VITALS: BP 136/78
== END 2020-11-07 14:02 | disposition home or self-care (01) ==
LOC: ED 10:23
DX: M25.561 Pain in right knee (principal); I11.0 Hypertensive heart disease with heart failure; I50.9 Heart failure, unspecified; Z86.711 Personal history of pulmonary embolism

== ENCOUNTER 2022-04-18 17:36 | Inpatient (IN) | payer MEDICARE, OTHER ==
[2022-04-18] VITALS (8 sets, daily range): BP systolic 99–120; BP diastolic 50–66
[~2022-04-18] VITALS: Ht 165.1 cm; Wt 151.0 kg
[~2022-04-18 17:36] MED LIST changes: +HYDROCO/APAP1 T10 PO; +ONDANSETRON4 MG PO
[2022-04-18] MEDS ORDERED: HYDROXYZ HCL25 MG PO (18:11)
[2022-04-18] MEDS ORDERED: FUROSEMIDE20 MG PO (18:11)
[2022-04-18] MEDS ORDERED: POT CHLORIDE10 ME5 PO (18:12)
[2022-04-18 18:22] LABS: BASO% 0.3 % (0-3); HEMATOCRIT 44.3 % (37.0-47.0); HEMOGLOBIN 14.6 g/dl (12.0-16.0); IMMATURE GRANULOCYTES 0.2 % (0.0-5.0); LYMPH% 7.8 % (15-41); MEAN CELL VOLUME 102.3 fL CALC (80.0-100.0); MEAN CORPUSCULAR HGB 33.7 pG CALC (26.0-32.0); MONO% 3.4 % (2-13); NEUT# 5.74 thou/uL (2.00-7.15); NEUT% 88.3 % (42-76); RED BLOOD COUNT 4.33 mill/uL (4.20-5.60); RED CELL DISTRI WIDTH 13.6 % (11.5-15.5)
[2022-04-18 18:38] LABS: ALBUMIN 4.3 g/dL (3.2-5.0); BILIRUBIN, TOTAL 0.5 mg/dL (0.0-1.4); C-REACTIVE PROTEIN 3.2 mg/dL (0-0.9); CREATININE 1.1 mg/dL (0.5-1.0); POTASSIUM 4.3 mmol/l (3.5-5.1); TOTAL PROTEIN 7.6 g/dL (6.3-8.2)
[2022-04-18 19:46] LABS: URINE BILIRUBIN - DIPSTICK NEGATIVE (NEGATIVE); URINE BLOOD DIPSTICK NEGATIVE (NEGATIVE); URINE COLOR YELLOW; URINE GLUCOSE - DIPSTICK NEGATIVE (NEGATIVE); URINE KETONE NEGATIVE (NEGATIVE); URINE PROTEIN - DIPSTICK NEGATIVE (NEG-TRACE); URINE SPECIFIC GRAVITY 1.025; URINE UROBILINOGEN - DIPSTICK 0.2 E.U./dL (0.2)
[2022-04-18 19:48] LABS: URINE LEUK ESTERASE SMALL (NEGATIVE); URINE NITRITE - DIPSTICK NEGATIVE (Negative)
[2022-04-18 19:54] LABS: URINE BACTERIA RARE hpf; URINE SQUAMOUS EPITHELIAL CELL FEW EPI/hpf (0-FEW)
[2022-04-19 04:50] VITALS: BP 150/73
[2022-04-19 07:49] LABS: BASO% 0.2 % (0-3); HEMATOCRIT 44.7 % (37.0-47.0); HEMOGLOBIN 14.8 g/dl (12.0-16.0); IMMATURE GRANULOCYTES 0.3 % (0.0-5.0); LYMPH% 13.8 % (15-41); MEAN CELL VOLUME 101.4 fL CALC (80.0-100.0); MEAN CORPUSCULAR HGB 33.6 pG CALC (26.0-32.0); MEAN CORPUSCULAR HGB CONC 33.1 g/dL CAL (32.0-36.0); MONO% 10.1 % (2-13); NEUT# 4.56 thou/uL (2.00-7.15); NEUT% 75.6 % (42-76); RED BLOOD COUNT 4.41 mill/uL (4.20-5.60); RED CELL DISTRI WIDTH 13.4 % (11.5-15.5)
[2022-04-19 08:04] LABS: ALBUMIN 4.5 g/dL (3.2-5.0); BILIRUBIN, TOTAL 0.5 mg/dL (0.0-1.4); CREATININE 1.1 mg/dL (0.5-1.0); MAGNESIUM 1.7 mg/dL (1.6-2.3); POTASSIUM 3.7 mmol/l (3.5-5.1); TOTAL PROTEIN 7.4 g/dL (6.3-8.2)
[2022-04-19 11:17] VITALS: BP 116/60
[2022-04-19 15:53] VITALS: BP 87/54
[2022-04-19 20:29] VITALS: BP 101/50
[2022-04-19] MEDS ORDERED: WARFARIN5 MG PO (22:38)
[2022-04-19 23:30] VITALS: BP 115/54
[2022-04-20] VITALS (9 sets, daily range): BP systolic 90–130; BP diastolic 53–67
[2022-04-20 06:21] LABS: BASO% 0.1 % (0-3); HEMATOCRIT 47.9 % (37.0-47.0); HEMOGLOBIN 15.7 g/dl (12.0-16.0); IMMATURE GRANULOCYTES 0.1 % (0.0-5.0); LYMPH% 19.3 % (15-41); MEAN CELL VOLUME 100.6 fL CALC (80.0-100.0); MEAN CORPUSCULAR HGB CONC 32.8 g/dL CAL (32.0-36.0); MONO% 13.9 % (2-13); NEUT# 4.87 thou/uL (2.00-7.15); NEUT% 66.6 % (42-76); RED BLOOD COUNT 4.76 mill/uL (4.20-5.60); RED CELL DISTRI WIDTH 13.3 % (11.5-15.5)
[2022-04-20 06:44] LABS: ALBUMIN 4.2 g/dL (3.2-5.0); BILIRUBIN, TOTAL 0.3 mg/dL (0.0-1.4); C-REACTIVE PROTEIN 1.5 mg/dL (0-0.9); CREATININE 1.1 mg/dL (0.5-1.0); TOTAL PROTEIN 7.3 g/dL (6.3-8.2)
[2022-04-20 07:07] LABS: D-DIMER 0.17 mg/L (0.19-0.60)
[2022-04-21 00:21] VITALS: BP 130/62
[2022-04-21 05:34] VITALS: BP 142/83
[2022-04-21 05:54] LABS: INTERNATIONAL NORMALIZED RATIO 2.3 RATIO (0.7-1.3); PROTHROMBIN TIME 21.9 SECONDS (9.0-12.5)
[2022-04-21 05:59] LABS: BASO% 0.2 % (0-3); HEMATOCRIT 49.3 % (37.0-47.0); HEMOGLOBIN 16.1 g/dl (12.0-16.0); IMMATURE GRANULOCYTES 0.3 % (0.0-5.0); LYMPH% 22.1 % (15-41); MEAN CELL VOLUME 101.9 fL CALC (80.0-100.0); MEAN CORPUSCULAR HGB 33.3 pG CALC (26.0-32.0); MEAN CORPUSCULAR HGB CONC 32.7 g/dL CAL (32.0-36.0); MONO% 12.6 % (2-13); NEUT# 4.22 thou/uL (2.00-7.15); NEUT% 64.8 % (42-76); RED BLOOD COUNT 4.84 mill/uL (4.20-5.60); RED CELL DISTRI WIDTH 13.1 % (11.5-15.5)
[2022-04-21 06:18] LABS: ALBUMIN 4.2 g/dL (3.2-5.0); BILIRUBIN, TOTAL 0.3 mg/dL (0.0-1.4); CREATININE 1.1 mg/dL (0.5-1.0); MAGNESIUM 1.8 mg/dL (1.6-2.3); POTASSIUM 3.9 mmol/l (3.5-5.1); TOTAL PROTEIN 7.1 g/dL (6.3-8.2)
[2022-04-21 07:46] VITALS: BP 119/58
[2022-04-21 11:44] VITALS: BP 110/58
[2022-04-21 14:00] VITALS: BP 101/56
[2022-04-22] VITALS (7 sets, daily range): BP systolic 108–134; BP diastolic 60–70
[2022-04-22 05:57] LABS: HEMATOCRIT 50.7 % (37.0-47.0); HEMOGLOBIN 16.9 g/dl (12.0-16.0); IMMATURE GRANULOCYTES 0.2 % (0.0-5.0); LYMPH% 23.2 % (15-41); MEAN CELL VOLUME 101.6 fL CALC (80.0-100.0); MEAN CORPUSCULAR HGB 33.9 pG CALC (26.0-32.0); MEAN CORPUSCULAR HGB CONC 33.3 g/dL CAL (32.0-36.0); NEUT# 3.75 thou/uL (2.00-7.15); NEUT% 62.6 % (42-76); RED BLOOD COUNT 4.99 mill/uL (4.20-5.60); RED CELL DISTRI WIDTH 13.1 % (11.5-15.5)
[2022-04-22 06:34] LABS: ALBUMIN 4.5 g/dL (3.2-5.0); ALKALINE PHOSPHATASE 53 u/l (38-126); ANION GAP 14 (6-22 (CALC)); BILIRUBIN, TOTAL 0.8 mg/dL (0.0-1.4); BUN 34 mg/dL (8-23); BUN/CREATININE RATIO 35 (12-20 (CALC)); CARBON DIOXIDE 28 mmol/l (22-30); CHLORIDE 99 mmol/l (95-108); GFR FOR AFR.AMER. > 60 ML/MIN (>=60 (CALC)); GFR OTHER RACES 54 ML/MIN (>=60 (CALC)); MAGNESIUM 1.9 mg/dL (1.6-2.3); POTASSIUM 4.3 mmol/l (3.5-5.1); SGOT/AST 73 u/l (9-36); SODIUM 136 mmol/l (137-146); TOTAL PROTEIN 7.7 g/dL (6.3-8.2)
[2022-04-22 06:50] LABS: INTERNATIONAL NORMALIZED RATIO 2.8 RATIO (0.7-1.3); PROTHROMBIN TIME 26.9 SECONDS (9.0-12.5)
[2022-04-23] VITALS (7 sets, daily range): BP systolic 114–132; BP diastolic 51–69
[2022-04-23 05:30] LABS: BASO% 0.2 % (0-3); EOS% 0.2 % (0-8); HEMATOCRIT 48.2 % (37.0-47.0); MEAN CELL VOLUME 101.9 fL CALC (80.0-100.0); MEAN CORPUSCULAR HGB 33.8 pG CALC (26.0-32.0); MEAN CORPUSCULAR HGB CONC 33.2 g/dL CAL (32.0-36.0); MONO% 12.7 % (2-13); NEUT# 4.15 thou/uL (2.00-7.15); NEUT% 63.9 % (42-76); RED BLOOD COUNT 4.73 mill/uL (4.20-5.60)
[2022-04-23 05:35] LABS: PROTHROMBIN TIME 33.4 SECONDS (9.0-12.5)
[2022-04-23 05:48] LABS: ANION GAP 11 (6-22 (CALC)); BUN 29 mg/dL (8-23); BUN/CREATININE RATIO 31 (12-20 (CALC)); CARBON DIOXIDE 29 mmol/l (22-30); CHLORIDE 99 mmol/l (95-108); CREATININE 0.9 mg/dL (0.5-1.0); GFR FOR AFR.AMER. > 60 ML/MIN (>=60 (CALC)); GFR OTHER RACES > 60 ML/MIN (>=60 (CALC)); SODIUM 135 mmol/l (137-146)
[2022-04-23 05:52] LABS: INTERNATIONAL NORMALIZED RATIO 3.6 RATIO (0.7-1.3)
[2022-04-23 14:14] LABS: ALBUMIN 4.3 g/dL (3.2-5.0); BILIRUBIN, TOTAL 0.7 mg/dL (0.0-1.4); TOTAL PROTEIN 7.6 g/dL (6.3-8.2)
[2022-04-24 00:44] VITALS: BP 114/56
[2022-04-24 04:33] VITALS: BP 127/60
[2022-04-24 06:26] LABS: PROTHROMBIN TIME 28.6 SECONDS (9.0-12.5)
[2022-04-24 06:30] LABS: ALKALINE PHOSPHATASE 55 u/l (38-126); ANION GAP 9 (6-22 (CALC)); BASO% 0.2 % (0-3); BILIRUBIN, TOTAL 0.7 mg/dL (0.0-1.4); BUN 30 mg/dL (8-23); BUN/CREATININE RATIO 31 (12-20 (CALC)); CARBON DIOXIDE 29 mmol/l (22-30); CHLORIDE 97 mmol/l (95-108); EOS% 0.3 % (0-8); GFR FOR AFR.AMER. > 60 ML/MIN (>=60 (CALC)); GFR OTHER RACES 54 ML/MIN (>=60 (CALC)); HEMATOCRIT 47.6 % (37.0-47.0); HEMOGLOBIN 16.1 g/dl (12.0-16.0); IMMATURE GRANULOCYTES 0.2 % (0.0-5.0); LYMPH% 24.3 % (15-41); MEAN CELL VOLUME 100.6 fL CALC (80.0-100.0); MEAN CORPUSCULAR HGB CONC 33.8 g/dL CAL (32.0-36.0); MONO% 15.3 % (2-13); NEUT# 3.82 thou/uL (2.00-7.15); NEUT% 59.7 % (42-76); POTASSIUM 3.9 mmol/l (3.5-5.1); RED BLOOD COUNT 4.73 mill/uL (4.20-5.60); RED CELL DISTRI WIDTH 12.9 % (11.5-15.5); SGOT/AST 58 u/l (9-36); SODIUM 132 mmol/l (137-146); TOTAL PROTEIN 7.2 g/dL (6.3-8.2)
[2022-04-24 07:19] VITALS: BP 116/59
[2022-04-24 09:48] VITALS: BP 121/70
[2022-04-24 09:49] VITALS: BP 121/70
[2022-04-24] MEDS ORDERED: LEVAQUIN750 M1 PO (11:06)
[2022-04-24] MEDS ORDERED: NYSTOP100000 UNI TOP (11:06)
[2022-04-24] MEDS ORDERED: DEXAMETHASON6 MG PO (11:08)
[2022-04-24] MEDS ORDERED: ROBITUSSIN AC10 ML PO (11:10)
== END 2022-04-24 15:15 | disposition home health service (06) | DRG 177 ==
LOC: ED 17:36 → ED-I 20:05 → ED 20:10 → MS2 20:11
PROVIDERS: Internal Medicine; Nurse Practitioner; Nurse Practitioner Family; ADMIT Internal Medicine; ATTEND Internal Medicine
DX: U07.1 COVID-19 (principal); J96.21 Acute and chronic respiratory failure with hypoxia; N39.0 Urinary tract infection, site not specified; Z68.43 Body mass index [BMI] 50.0-59.9, adult; I11.0 Hypertensive heart disease with heart failure; I50.9 Heart failure, unspecified; E11.9 Type 2 diabetes mellitus without complications; I48.91 Unspecified atrial fibrillation; I25.10 Atherosclerotic heart disease of native coronary artery without angina pectoris; J44.9 Chronic obstructive pulmonary disease, unspecified; E03.9 Hypothyroidism, unspecified; E66.01 Morbid (severe) obesity due to excess calories; M19.90 Unspecified osteoarthritis, unspecified site; B96.20 Unspecified Escherichia coli [E. coli] as the cause of diseases classified elsewhere; S20.112A Abrasion of breast, left breast, initial encounter; X58.XXXA Exposure to other specified factors, initial encounter; Z99.81 Dependence on supplemental oxygen; Z86.711 Personal history of pulmonary embolism; Z77.22 Contact with and (suspected) exposure to environmental tobacco smoke (acute) (chronic); Z79.01 Long term (current) use of anticoagulants
CPT/HCPCS: J1160

== ENCOUNTER 2022-05-18 21:25 | Emergency (ER) | payer MEDICARE, OTHER ==
[~2022-05-18] VITALS: Ht 165.1 cm; Wt 154.0 kg
[~2022-05-18 21:25] MED LIST changes: +DEXAMETHASON6 MG PO; +FUROSEMIDE20 MG PO; +LEVAQUIN750 M1 PO; +NYSTOP100000 UNI TOP; +POT CHLORIDE10 ME5 PO; +ROBITUSSIN AC10 ML PO
[2022-05-19] MEDS ORDERED: LORTAB 1010 MG PO (02:58)
[2022-05-19 03:08] VITALS: BP 102/58
== END 2022-05-19 03:41 | disposition home or self-care (01) ==
LOC: ED 21:25
PROC: 2W3RX1Z Immobilization of Left Lower Leg using Splint (ICD-10-PCS; principal; 2022-05-18)
DX: S82.832A Other fracture of upper and lower end of left fibula, initial encounter for closed fracture (principal); E11.9 Type 2 diabetes mellitus without complications; I10 Essential (primary) hypertension; W01.0XXA Fall on same level from slipping, tripping and stumbling without subsequent striking against object, initial encounter; Y92.002 Bathroom of unspecified non-institutional (private) residence as the place of occurrence of the external cause; Z86.711 Personal history of pulmonary embolism